=== PATIENT | male | born 1970 | race Hispanic/Latino ===

== ENCOUNTER 2018-03-31 07:05 | Day surgery (SDC) | payer BC ==
--- OUTSIDE RECORDS SUMMARY | 2018-03-31 07:18 | XMS REPORT ---
:1970 Author Organization eClinicalWorks Care Team Providers Name Role Phone Silvino Richardson Provider Role Unavailable Allergies No Known Allergies Problems Problem Type Condition Code Onset Dates Condition Status Assessment Right elbow tendonitis M77.8 Active Assessment Asthma without acute exacerbation J45.909 Active Assessment Malaise and fatigue R53.81 Active Problem Osteoarthritis of knee, unspecified M17.10 Active laterality, unspecified osteoarthritis type Problem Malaise and fatigue R53.81 Active Problem Right elbow tendonitis M77.8 Active Problem Asthma without acute exacerbation J45.909 Active Assessment Hyperlipidemia, mixed E78.2 Active Problem Hyperlipidemia, mixed E78.2 Active Problem Cardiac disease I51.9 Active Medications Medication Code Code Instructions Start End Date Status Dosage System Date Symbicort [facility] 87811736321 160-4.5 MCG/ACT Active 2 puffs Inhalation Twice a day Lipitor ND 68455799567 10 MG Orally Active 1 tablet Once a day Ventolin HFA [facility] 26695067567 108 (90 Base) Active 2 puffs as MCG/ACT needed Inhalation every 6 hrs PRN COuhg, Shortness of breath and Wheezing Fish Oil ND 04111116264 1000 MG Orally Active 1 capsule Once a day Duexis [facility] 79504126309 800-26.6 MG Active 1 tablet Orally Three times a day PRN Pain Results No Known Results Summary Purpose eClinicalWorks Submission
--- OUTSIDE RECORDS SUMMARY | 2018-03-31 07:18 | XMS REPORT ---
:1970 Author Organization eClinicalWorks Care Team Providers Name Role Phone Silvino Richardson Provider Role Unavailable Allergies No Known Allergies Problems Problem Type Condition Code Onset Dates Condition Status Assessment Asthma without acute exacerbation J45.909 Active Assessment Right elbow tendonitis M77.8 Active Assessment Hyperlipidemia, mixed E78.2 Active Assessment Malaise and fatigue R53.81 Active Problem Osteoarthritis of knee, unspecified M17.10 Active laterality, unspecified osteoarthritis type Problem Malaise and fatigue R53.81 Active Problem Right elbow tendonitis M77.8 Active Problem Asthma without acute exacerbation J45.909 Active Assessment Encounter for preventative adult Z00.01 Active health care exam with abnormal findings Problem Hyperlipidemia, mixed E78.2 Active Problem Cardiac disease I51.9 Active Medications Medication Code Code Instructions Start End Status Dosage System Date Date ProAir [facility] 34342802185 108 (90 Base) Inactive 2 puffs as RespiClick MCG/ACT needed Inhalation every 6 hrs Ventolin HFA ND 93169484558 108 (90 Base) November 10, Active 2 puffs as MCG/ACT 2017 needed Inhalation every 6 hrs PRN COuhg, Shortness of breath and Wheezing Symbicort ND 96552993985 160-4.5 MCG/ACT November 05 Active 2 puffs Inhalation 2018 Twice a day Proventil HFA ND 62277991953 108 (90 Base) Inactive 2 puffs as MCG/ACT needed Inhalation every 6 hrs Duexis [facility] 17213270148 800-26.6 MG November 10December Active 1 tablet Orally Three 2017 23, times a day PRN 2018 Pain Lipitor ND 49930490375 10 MG Orally Active 1 tablet Once a day Fish Oil ND 69100805919 1000 MG Orally Active 1 capsule Once a day Results No Known Results Summary Purpose eClinicalWorks Submission
[2018-03-31] MEDS ORDERED: Ringers Lactate 1,000 ML IV ONE (07:25)
[2018-03-31] MEDS ORDERED: LIDOCAINE 2% MPF 5 ML VIAL ONE (08:21)
[2018-03-31] MEDS ORDERED: MIDAZOLAM HCL 2 MG/2 ML INJ ONE (08:23)
[2018-03-31] MEDS ORDERED: PROPOFOL 200 MG/20 ML VIAL IV ONE (08:23)
[2018-03-31] MEDS ORDERED: ONDANSETRON 4 MG/2 ML VIAL ONE (08:49)
--- NOTE | 2018-03-31 08:49 | ENDO RPT ---
[address], [address] EGD PROCEDURE REPORT EXAM DATE: 03/31/2018 PATIENT NAME: Fito Christine MR#: [id number] BIRTHDATE: 1970 ATTENDING: Eddie Altamirano DR STATUS: outpatient ACID ETCH OPERATOR: Lotus Irnee RN and Robert Meredith INDICATIONS: The patient is a 48 yr old Male here for an EGD due to mid epigastric abdominal pain, GERD, dyspepsia, chronic unexplained diarrhea, bloating, and nausea and vomiting PROCEDURE PERFORMED: EGD with biopsy for H. pylori MEDICATIONS: Per Anesthesia. TOPICAL ANESTHETIC: none CONSENT: The patient understands the risks and benefits of the procedure and understands that these risks include, but are not limited to: sedation, allergic reaction, infection, perforation and/or bleeding. Alternative means of evaluation and treatment include, among others: physical exam, x-rays, and/or surgical intervention. The patient elects to proceed with this endoscopic procedure. DESCRIPTION OF PROCEDURE: During intra-op preparation period all mechanical medical equipment was checked for proper function. Hand hygiene and appropriate measures for infection prevention was taken. Procedure, possible complications, and alternatives including but not limited to the possibility of bleeding, perforation, tear, infection, sepsis, need for surgery, need for blood transfusion, and anesthesia related complications were explained to the patient. After the risks, benefits and alternatives of the procedure were thoroughly explained, Informed consent was verified, confirmed and timeout was successfully executed by the treatment team. The patient was placed in the left lateral position. The patient was anesthetized with topical anesthesia. Through the anesthetized oropharyngeal area, the scope was passed without any difficulty. The EG-[id number] ([id number]) endoscope was introduced through the mouth and advanced to the second portion of the duodenum. Retroflexed views revealed no abnormalities. The gastroscope was then slowly withdrawn and removed. Duodenitis was found in the bulb and descending duodenum. A biopsy for H. pylori was taken. Mild gastritis was found in the antrum. A biopsy for H. pylori was taken. Normal GE junction was noted. 40 cm from incisors, Z line sharp With standard forceps, a biopsy was obtained and sent to pathology. ADVERSE EVENTS: There were no complications. IMPRESSIONS: 1. Duodenitis was found in the bulb and descending duodenum 2. Mild gastritis was found in the antrum 3. Normal GE junction RECOMMENDATIONS: 1. acid suppression therapy 2. anti-reflux regimen 3. await biopsy results 4. follow-up: office 2 week(s) 5. avoid NSAIDS REPEAT EXAM: Return in 1 year(s) for Colonoscopy. Eddie Altamirano DR eSigned: Eddie Altamirano DR 03/31/2018 8:41 AM cc: CPT CODES: ICD9 CODES: PATIENT NAME: Fito Christine MR#: [id number]
== END 2018-03-31 09:29 | disposition home health service (06) ==
LOC: OR 07:05
PROVIDERS: ATTEND Surgery
PROC: 0DB68ZX Excision of Stomach, Via Natural or Artificial Opening Endoscopic, Diagnostic (ICD-10-PCS; 2018-03-31)
PROC: 0DB98ZX Excision of Duodenum, Via Natural or Artificial Opening Endoscopic, Diagnostic (ICD-10-PCS; principal; 2018-03-31 11:15)
DX: K29.50 Unspecified chronic gastritis without bleeding (principal); K29.80 Duodenitis without bleeding; K21.9 Gastro-esophageal reflux disease without esophagitis; E78.2 Mixed hyperlipidemia; J45.901 Unspecified asthma with (acute) exacerbation; Z88.0 Allergy status to penicillin; Z82.49 Family history of ischemic heart disease and other diseases of the circulatory system; Z80.1 Family history of malignant neoplasm of trachea, bronchus and lung
CPT/HCPCS: 88305; 88312; J2250; J2405

== ENCOUNTER 2018-07-31 13:05 | Emergency (ER) | payer BC ==
--- OUTSIDE RECORDS SUMMARY | 2018-07-31 13:08 | XMS REPORT ---
[...] Status Dosage System Date Date ProAir [facility] 85074264765 108 (90 Base) Inactive 2 puffs as RespiClick MCG/ACT needed Inhalation every 6 hrs Ventolin HFA ND 43168458950 108 (90 Base) November 10, Active 2 puffs as MCG/ACT 2017 needed Inhalation every 6 hrs PRN COuhg, Shortness of breath and Wheezing Symbicort ND 24260245317 160-4.5 MCG/ACT November 05 Active 2 puffs Inhalation 2018 Twice a day Proventil HFA ND 90338942463 108 (90 Base) Inactive 2 puffs as MCG/ACT needed Inhalation every 6 hrs Duexis [facility] 23140815361 800-26.6 MG November 10December Active 1 tablet Orally Three 2017 23, times a day PRN 2018 Pain Lipitor ND 09662693136 10 MG Orally Active 1 tablet Once a day Fish Oil ND 31316287551 1000 MG Orally Active 1 capsule Once a day Results No Known Results Summary Purpose eClinicalWorks Submission
--- OUTSIDE RECORDS SUMMARY | 2018-07-31 13:08 | XMS REPORT ---
:1970 [facility] Address [address] [place] [address] [address] [place] [address] Care Team Providers Name Role Phone Unavailable Unavailable Unavailable Problems This patient has no known problems. Allergies, Adverse Reactions, Alerts This patient has no known allergies or adverse reactions. Medications This patient has no known medications.
--- OUTSIDE RECORDS SUMMARY | 2018-07-31 13:08 | XMS REPORT ---
[...] End Date Status Dosage System Date Symbicort [facility] 06806802052 160-4.5 MCG/ACT Active 2 puffs Inhalation Twice a day Lipitor ND 29796958542 10 MG Orally Active 1 tablet Once a day Ventolin HFA [facility] 66950387998 108 (90 Base) Active 2 puffs as MCG/ACT needed Inhalation every 6 hrs PRN COuhg, Shortness of breath and Wheezing Fish Oil ND 30578935538 1000 MG Orally Active 1 capsule Once a day Duexis [facility] 51234134010 800-26.6 MG Active 1 tablet Orally Three times a day PRN Pain Results No Known Results Summary Purpose eClinicalWorks Submission
--- NOTE | 2018-07-31 14:21 | RAD REPORT ---
EXAM DESCRIPTION: US - Abdomen Exam Limited - 07/31/2018 2:00 pm CLINICAL HISTORY: Abdominal pain COMPARISON: None. FINDINGS: No gallstones, sludge or other abnormalities within the gallbladder lumen. There is no wal l thickening or pericholecystic fluid. No common duct stone or biliary tree dilatation identified. IMPRESSION: Normal gallbladder and biliary tree ultrasound.
--- NOTE | 2018-07-31 14:21 | RAD REPORT ---
EXAM DESCRIPTION: Shoulder Right 2 View - 07/31/2018 2:08 pm CLINICAL HISTORY: Right arm numbness and tingling COMPARISON: None. TECHNIQUE: Internal and external rotation views of the right shoulder were obtained. FINDINGS: There is no fracture or dislocation. Minimal AC joint degenerative changes are present. N o inferiorly directed spurring. Acromial humeral joint space is normal range. No abnormal soft tissue calcifications. There is minimal degenerative change along the undersurface of the acromion. IMPRESSION: Mild right shoulder degenerative change as detailed. No acute finding. Concerns for occult bone process or internal derangement can be addressed with MR imaging.
[2018-07-31 14:32] LABS: Absolute Lymphocytes (CBC) 1.8 K/uL (0.7-4.9); Absolute Monocytes 0.6 K/uL (0.1-1.3); Basophils % 0.7 % (0-1.3); Eosinophils % 1.2 % (0-4.4); Hematocrit 47.6 % (39.6-49.0); Lymphocytes % 16.7 % (15.3-44.8); Monocytes % 6.1 % (3.3-12.3)
[2018-07-31] MEDS ORDERED: MORPHINE 4 MG/ML SYR ONE (14:43)
[2018-07-31] MEDS ORDERED: ONDANSETRON 4 MG/2 ML VIAL ONE (14:43)
[2018-07-31 14:45] LABS: Albumin 4.4 g/dL (3.4-5.0); Bilirubin Direct 0.1 mg/dL (0-0.2); Bilirubin Total 0.4 mg/dL (0.2-1.0); Protein, Total 8.2 g/dL (6.4-8.2)
[2018-07-31 14:51] LABS: Urine Blood NEGATIVE (NEG); Urine Glucose NEGATIVE (NEG); Urine Protein NEGATIVE (NEG); Urine Specific Gravity 1.015 (1.005-1.030)
--- NOTE | 2018-07-31 15:49 | ER ---
Nurse's Notes [facility] Name: Fito Christine Age: 48 yrs Sex: Male : 1970 Arrival Date: 07/31/2018 Time: 13:09 Bed 30 Private MD: Silvino Richardson Diagnosis: Epigastric pain Presentation: 07/31 13:21 Presenting complaint: Patient states: right shoulder pain x 1 month ago. Pt also aa5 reports RUQ pain that began 3 days ago with nausea and diarrhea, denies vomiting. Transition of care: patient was not received from another setting of care. Onset of symptoms was July 2018. Risk Assessment: Do you want to hurt yourself or someone else? Patient reports no desire to harm self or others. Initial Sepsis Screen: Does the patient meet any 2 criteria? No. Patient's initial sepsis screen is negative. Does the patient have a suspected source of infection? No. Patient's initial sepsis screen is negative. Care prior to arrival: None. 13:21 Method Of Arrival: Ambulatory aa5 13:21 Acuity: DIANE 3 aa5 Historical: - Allergies: 13:22 PENICILLINS; aa5 - PMHx: 13:22 Asthma; High Cholesterol; aa5 - PSHx: 13:22 Appendectomy; aa5 - Immunization history:: Flu vaccine is up to date. - Social history:: Smoking status: Patient/guardian denies using tobacco, Patient/guardian denies using alcohol, street drugs, The patient lives with family. - Ebola Screening: : No symptoms or risks identified at this time. - Family history:: not pertinent. Screenin:36 Abuse screen: Denies threats or abuse. Nutritional screening: No deficits noted. tl3 Tuberculosis screening: No symptoms or risk factors identified. Fall Risk None identified. Assessment: 13:36 General: Appears uncomfortable, well groomed, well developed, well nourished, Behavior tl3 is calm, cooperative, appropriate for age. Pain: Complains of pain in right upper abdomen that goes around to his back. Neuro: Level of Consciousness is awake, alert, obeys commands, Oriented to person, place, time, situation, Appropriate for age. Cardiovascular: Heart tones S1 S2 present Patient's skin is warm and dry. Respiratory: Airway is patent Respiratory effort is even, unlabored, Respiratory pattern is regular, symmetrical, Breath sounds are clear bilaterally. GI: Bowel sounds present X 4 quads. Abd is soft and non tender X 4 quads. 15:21 Reassessment: Patient and/or family updated on plan of care and expected duration. Pain tl3 level reassessed. Patient is alert, oriented x 3, equal unlabored respirations, skin warm/dry/pink. no needs at this timr Patient states feeling better. Patient states symptoms have improved. 16:00 Reassessment: No changes from previously documented assessment. Patient and/or family tl3 updated on plan of care and expected duration. Pain level reassessed. Patient is alert, oriented x 3, equal unlabored respirations, skin warm/dry/pink. pt being discharged. Vital Signs: 13:22 BP 125 / 88; Pulse 100; Resp 18 S; Temp 99.3(TE); Pulse Ox 98% on R/A; Weight 96.16 kg aa5 (R); Height 5 ft. 9 in. (175.26 cm) (R); Pain 10/10; 15:21 BP 114 / 78; Pulse 87; Resp 18; Pulse Ox 94% on R/A; tl3 16:00 BP 116 / 84; Pulse 84; Resp 18; Pulse Ox 97% ; tl3 13:22 Body Mass Index 31.31 (96.16 kg, 175.26 cm) aa5 ED Course: 13:09 Patient arrived in ED. mr 13:09 Silvino Richardson DO is Private Physician. mr 13:21 Triage completed. aa5 13:21 Arm band placed on. aa5 13:28 Kwadwo Moffett MD is Attending Physician. ma2 13:36 Thelma Roche, LAURA is Primary Nurse. tl3 13:36 Patient has correct armband on for positive identification. Bed in low position. Call tl3 light in reach. 13:36 No provider procedures requiring assistance completed. tl3 13:59 US Abdomen Limited In Process Unspecified. EDMS 14:00 X-ray completed. Portable x-ray completed in exam room. Patient tolerated procedure sw well. 14:05 Shoulder Right (2 View) XRAY In Process Unspecified. EDMS 14:15 Initial lab(s) drawn, by me, sent to lab. Inserted saline lock: 20 gauge in right jp3 antecubital area, using aseptic technique. Blood collected. 14:23 Urine collected: clean catch specimen, clear, mary beth colored, Amount Voided: 80mL. jp3 14:23 Basic Metabolic Panel Sent. jp3 14:24 CBC with Diff Sent. jp3 14:24 Creatinine for Radiology Sent. jp3 14:24 Hepatic Function Sent. jp3 14:24 Lipase Sent. jp3 16:00 IV discontinued, intact, bleeding controlled, No redness/swelling at site. Pressure tl3 dressing applied. Administered Medications: 14:40 Drug: Zofran 4 mg Route: IVP; Infused Over: 2 mins; Site: right antecubital; tl3 15:21 Follow up: Response: No adverse reaction tl3 14:43 Drug: morphine 4 mg Route: IVP; Infused Over: 1 mins; Site: right antecubital; tl3 15:21 Follow up: Response: Marked relief of symptoms tl3 Outcome: 15:47 Discharge ordered by . [email or web address] 16:00 Discharged to home ambulatory. tl3 16:00 Condition: stable 16:00 Discharge instructions given to patient, Instructed on discharge instructions, follow up and referral plans. Demonstrated understanding of instructions, follow-up care, medications, Prescriptions given X 1. 16:29 Patient left the ED. tl3 Signatures: Dispatcher [employer] Heydi Hawkins KristopherConstanza RN RN aa5 Delores Ventura Mohammad, MD MD ma2 Thelma Roche RN RN tl3 Danish Geiger jp3
--- NOTE | 2018-07-31 15:50 | EDPHYS ---
Physician Documentation [facility] Name: Fito Christine Age: 48 yrs Sex: Male : 1970 Arrival Date: 07/31/2018 Time: 13:09 Bed 30 Private MD: [facility] ED Physician Kwadwo Moffett HPI: 07/31 15:45 This 48 yrs old Male presents to ER via Ambulatory with complaints of ma2 Abdominal Pain, Nausea, Shoulder Pain. 15:45 The patient presents to the emergency department with nausea, vomiting, abdominal pain, ma2 of the epigastric area and right upper quadrant. Onset: The symptoms/episode began/occurred gradually, 2 day(s) ago. The symptoms are aggravated by pressure. Associated signs and symptoms: Pertinent positives: abdominal pain, Pertinent negatives: diarrhea, flatulence, hematuria. Severity of symptoms: At their worst the symptoms were moderate in the emergency department the symptoms are unchanged. The patient has experienced similar episodes in the past. Historical: - Allergies: 13:22 PENICILLINS; aa5 - PMHx: 13:22 Asthma; High Cholesterol; aa5 - PSHx: 13:22 Appendectomy; aa5 - Immunization history:: Flu vaccine is up to date. - Social history:: Smoking status: Patient/guardian denies using tobacco, Patient/guardian denies using alcohol, street drugs, The patient lives with family. - Ebola Screening: : No symptoms or risks identified at this time. - Family history:: not pertinent. ROS: 15:45 Constitutional: Negative for fever, chills, and weight loss, Cardiovascular: Negative ma2 for chest pain, palpitations, and edema, Respiratory: Negative for shortness of breath, cough, wheezing, and pleuritic chest pain, Abdomen/GI: Negative for abdominal pain, nausea, diarrhea, and constipation, MS/Extremity: Negative for injury and deformity, Neuro: Negative for headache, weakness, numbness, tingling, and seizure, Psych: Negative for depression, anxiety, suicide ideation, homicidal ideation, and hallucinations, Allergy/Immunology: Negative for hives, rash, and allergies. Exam: 15:45 Constitutional: This is a well developed, well nourished patient who is awake, alert, ma2 and in no acute distress. Chest/axilla: Normal chest wall appearance and motion. Nontender with no deformity. No lesions are appreciated. Cardiovascular: Regular rate and rhythm with a normal S1 and S2. No gallops, murmurs, or rubs. Normal PMI, no JVD. No pulse deficits. Respiratory: Lungs have equal breath sounds bilaterally, clear to auscultation and percussion. No rales, rhonchi or wheezes noted. No increased work of breathing, no retractions or nasal flaring. Abdomen/GI: Soft, non-tender, with normal bowel sounds. No distension or tympany. No guarding or rebound. No evidence of tenderness throughout. Skin: Warm, dry with normal turgor. Normal color with no rashes, no lesions, and no evidence of cellulitis. MS/ Extremity: Pulses equal, no cyanosis. Neurovascular intact. Full, normal range of motion. Neuro: Awake and alert, GCS 15, oriented to person, place, time, and situation. Cranial nerves II-XII grossly intact. Motor strength 5/5 in all extremities. Sensory grossly intact. Cerebellar exam normal. Normal gait. Vital Signs: 13:22 BP 125 / 88; Pulse 100; Resp 18 S; Temp 99.3(TE); Pulse Ox 98% on R/A; Weight 96.16 kg aa5 (R); Height 5 ft. 9 in. (175.26 cm) (R); Pain 10/10; 15:21 BP 114 / 78; Pulse 87; Resp 18; Pulse Ox 94% on R/A; tl3 16:00 BP 116 / 84; Pulse 84; Resp 18; Pulse Ox 97% ; tl3 13:22 Body Mass Index 31.31 (96.16 kg, 175.26 cm) aa5 MDM: 13:28 Patient medically screened. ma2 15:45 Differential diagnosis: gastritis, pancreatitis, viral gastroenteritis, ma2 gastroenteritis. Data reviewed: vital signs, nurses notes, EMS record. Counseling: I had a detailed discussion with the patient and/or guardian regarding: the historical points, exam findings, and any diagnostic results supporting the discharge/admit diagnosis, the presence of at least one elevated blood pressure reading (>120/80) during this emergency department visit, the need for outpatient follow up. Response to treatment: the patient's symptoms have resolved after treatment. 07/31 13:39 Order name: Basic Metabolic Panel; Complete Time: 15:24 ma2 07/31 13:39 Order name: CBC with Diff; Complete Time: 15:24 [facility] 07/31 13:39 Order name: Creatinine for Radiology; Complete Time: 15:24 [facility] 07/31 13:39 Order name: Hepatic Function; Complete Time: 15:24 [facility] 07/31 13:39 Order name: Lipase; Complete Time: 15:24 [facility] 07/31 14:43 Order name: Urine Dipstick--Ancillary (enter results); Complete Time: 15:24 07/31 13:39 Order name: IV Saline Lock; Complete Time: 14:24 [facility] 07/31 13:39 Order name: Labs collected and sent; Complete Time: 14:24 [facility] 07/31 13:39 Order name: US Abdomen Limited; Complete Time: 15:24 [facility] 07/31 13:39 Order name: Shoulder Right (2 View) XRAY; Complete Time: 15:24 ma Administered Medications: 14:40 Drug: Zofran 4 mg Route: IVP; Infused Over: 2 mins; Site: right antecubital; tl3 15:21 Follow up: Response: No adverse reaction tl3 14:43 Drug: morphine 4 mg Route: IVP; Infused Over: 1 mins; Site: right antecubital; tl3 15:21 Follow up: Response: Marked relief of symptoms tl3 Disposition: 07/31/18 15:47 Discharged to Home. Impression: Epigastric pain. - Condition is Stable. - Discharge Instructions: Abdominal Pain, Adult, Coqf-bn-Vpsy, How to Use a Sling. - Prescriptions for Pepcid 20 mg Oral Tablet - take 1 tablet by ORAL route once daily for 10 days; 10 tablet. - Medication Reconciliation Form, Thank You Letter, Antibiotic Education, Prescription Opioid Use, Work release form, Family Work Release form. - Follow up: Private Physician; When: Today; Reason: Continuance of care. Signatures: Dispatcher [employer] Constanza Parisi, RN RN aa5 Kwadwo Moffett MD MD ma2 Thelma Roche RN RN tl3 Corrections: (The following items were deleted from the chart) 16:29 15:47 07/31/2018 15:47 Discharged to Home. Impression: Epigastric pain. Condition is tl3 Stable. Forms are Medication Reconciliation Form, Thank You Letter, Antibiotic Education, Prescription Opioid Use. Follow up: Private Physician; When: Today; Reason: Continuance of care. ma2
== END 2018-07-31 16:29 | disposition home or self-care (01) ==
LOC: ER 13:05
DX: R10.13 Epigastric pain (principal); Z88.0 Allergy status to penicillin
CPT/HCPCS: 36415; 76705; 80048; 80076; 81003; 83690; 85025; 96374; 96375; 99284; J2405

== ENCOUNTER 2019-06-11 11:30 | Observation (INO) | payer BC ==
--- OUTSIDE RECORDS SUMMARY | 2019-06-11 11:32 | XMS REPORT ---
[...] Date Status Dosage System Date Symbicort [facility] 42462016624 160-4.5 MCG/ACT Active 2 puffs Inhalation Twice a day Lipitor ND 96919931555 10 MG Orally Active 1 tablet Once a day Ventolin HFA [facility] 44512794912 108 (90 Base) Active 2 puffs as MCG/ACT needed Inhalation every 6 hrs PRN COuhg, Shortness of breath and Wheezing Fish Oil ND 52903096205 1000 MG Orally Active 1 capsule Once a day Duexis [facility] 43883893140 800-26.6 MG Active 1 tablet Orally Three times a day PRN Pain Results No Known Results Summary Purpose eClinicalWorks Submission
--- OUTSIDE RECORDS SUMMARY | 2019-06-11 11:32 | XMS REPORT ---
[...] End Status Dosage System Date Date ProAir [facility] 88928784369 108 (90 Base) Inactive 2 puffs as RespiClick MCG/ACT needed Inhalation every 6 hrs Ventolin HFA ND 96951847396 108 (90 Base) November 10, Active 2 puffs as MCG/ACT 2017 needed Inhalation every 6 hrs PRN COuhg, Shortness of breath and Wheezing Symbicort ND 61484354914 160-4.5 MCG/ACT November 05 Active 2 puffs Inhalation 2018 Twice a day Proventil HFA ND 17985443755 108 (90 Base) Inactive 2 puffs as MCG/ACT needed Inhalation every [address] [facility] 52737645874 800-26.6 MG November 10December Active 1 tablet Orally Three 2017 23, times a day PRN 2018 Pain Lipitor ND 94641787660 10 MG Orally Active 1 tablet Once a day Fish Oil ND 27994683754 1000 MG Orally Active 1 capsule Once a day Results No Known Results Summary Purpose eClinicalWorks Submission
--- OUTSIDE RECORDS SUMMARY | 2019-06-11 11:32 | XMS REPORT ---
:1970 [facility] Address [address] [place] [address] Care Team Providers Name Role Phone Unavailable Unavailable Unavailable Problems This patient has no known problems. Allergies, Adverse Reactions, Alerts This patient has no known allergies or adverse reactions. Medications This patient has no known medications.
[2019-06-11] MEDS ORDERED: CLINDAMYCIN 900MG/D5W 900 MG/50 ML IVPB IV ONE (12:16)
[2019-06-11] MEDS ORDERED: ONDANSETRON 4 MG/2 ML VIAL ONE (12:16)
[2019-06-11] MEDS ORDERED: MORPHINE 4 MG/ML SYR ONE ×2 (12:16→14:47)
[2019-06-11 12:51] LABS: Absolute Lymphocytes (CBC) 1.4 K/uL (0.7-4.9); Basophils % 0.5 % (0-1.3); Hematocrit 45.4 % (39.6-49.0); MPV 9.1 fL (7.6-11.3); RBC Red Blood Cell Count 5.35 M/uL (4.33-5.43)
[2019-06-11 12:57] LABS: Potassium 4.1 mmol/L (3.5-5.1)
--- NOTE | 2019-06-11 13:25 | RAD REPORT ---
EXAM DESCRIPTION: CT - [facility]ID [facility] CLINICAL HISTORY: Right nasal abscess Facial pain and swelling COMPARISON: No comparisons TECHNIQUE: Axial 2 mm thick images of the face were obtained with contrast and with sagittal and cor onal reconstruction images. All CT scans are performed using dose optimization technique as appropriate and may include automated exposure control or mA/KV adjustment according to patient size. FINDINGS: Soft tissue thickening and edema is seen in the in perinasal tissues. A small rim enhancin g abscess is suspected along the right nasal soft tissues measuring 5 mm. This located just inferior to the right nasal bone. No acute facial bone fracture is seen.The mandible is intact. The globes and orbital contents are grossly unremarkable.Small mucous retention cyst or polyp is pres ent in the left maxillary antrum. The paranasal sinuses and mastoids are otherwise clear. A few mildly prominent lymph nodes are seen in the neck bilaterally. IMPRESSION: Perinasal soft tissue swelling is evident with a small 5 mm abscess possibly present sebastian ng the right sided soft tissues of the nose.
--- NOTE | 2019-06-11 13:47 | ER ---
Nurse's Notes [facility] Name: Fito Christine Age: 49 yrs Sex: Male : 1970 Arrival Date: 06/11/2019 Time: 11:32 Bed 17 Private MD: Diagnosis: Facial Abscess: Right nostril Presentation: 06/11 11:32 Presenting complaint: Patient states: right side facial swelling x 1 day, c/o headache sv to the right side. Transition of care: patient was not received from another setting of care. Onset of symptoms was June 10, 2019. Risk Assessment: Do you want to hurt yourself or someone else? Patient reports no desire to harm self or others. Care prior to arrival: Medication(s) given: Motrin, taken at 0800. 11:32 Method Of Arrival: Ambulatory sv 11:32 Acuity: DIANE 3 sv 12:05 Initial Sepsis Screen: Does the patient meet any 2 criteria? No. Patient's initial em sepsis screen is negative. Does the patient have a suspected source of infection? Yes: Skin breakdown/wound. Historical: - Allergies: 11:33 PENICILLINS; sv - PMHx: 11:33 Asthma; High Cholesterol; sv - PSHx: 11:33 Appendectomy; sv - Immunization history:: Flu vaccine is up to date. - Social history:: Smoking status: Patient/guardian denies using tobacco. - Ebola Screening: : No symptoms or risks identified at this time. Screenin:08 Abuse screen: Denies threats or abuse. Nutritional screening: No deficits noted. em Tuberculosis screening: No symptoms or risk factors identified. Fall Risk None identified. Assessment: 12:05 General: Appears in no apparent distress. uncomfortable, Behavior is calm, cooperative, em Denies fever. Pain: Complains of pain in right cheek and nose Pain currently is 9 out of 10 on a pain scale. Neuro: Level of Consciousness is awake, alert, obeys commands, Oriented to person, place, time, situation, Appropriate for age Reports headache in right. Cardiovascular: Capillary refill < 3 seconds Patient's skin is warm and dry. Respiratory: Airway is patent Respiratory effort is even, unlabored, Respiratory pattern is regular, symmetrical. GI: Patient currently denies nausea, vomiting. EENT: swelling noted to right side of face. Derm: Skin is intact, is healthy with good turgor, Skin is pink, warm \T\ dry. Musculoskeletal: Capillary refill < 3 seconds, Range of motion: intact in all extremities. 12:15 General: The previous assessment is accurate, call light remains within reach. . ss 13:30 Reassessment: Patient appears in no apparent distress at this time. Patient and/or em family updated on plan of care and expected duration. Pain level reassessed. Patient is alert, oriented x 3, equal unlabored respirations, skin warm/dry/pink. 14:33 Reassessment: Patient appears in no apparent distress at this time. Patient and/or em family updated on plan of care and expected duration. Pain level reassessed. Patient is alert, oriented x 3, equal unlabored respirations, skin warm/dry/pink. pending room assignment. 14:45 Reassessment: reports pain is 8/10, restless and uncomfortable, provider notified, new em medication orders received. 15:04 Reassessment: hospitalist at bedside discussing POC. em 16:40 Reassessment: Patient appears in no apparent distress at this time. Patient and/or em family updated on plan of care and expected duration. Pain level reassessed. Patient is alert, oriented x 3, equal unlabored respirations, skin warm/dry/pink. reports pain is coming back, rates pain 8/10. Vital Signs: 11:33 BP 135 / 81; Pulse 88; Resp 18; Temp 97.8(O); Pulse Ox 100% ; Weight 99.79 kg; Height 5 sv ft. 9 in. (175.26 cm); Pain 7/10; 14:38 BP 135 / 89; Pulse 94; Resp 18; Pulse Ox 99% on R/A; Pain 8/10; em 15:49 BP 124 / 86; Pulse 81; Resp 18; Pulse Ox 99% on R/A; mh5 16:04 BP 135 / 93; Pulse 87; Resp 16; Pulse Ox 99% on R/A; Pain 6/10; em 16:40 BP 127 / 91; Pulse 79; Resp 18; Pulse Ox 98% on R/A; Pain 7/10; em 11:33 Body Mass Index 32.49 (99.79 kg, 175.26 cm) sv ED Course: 11:32 Patient arrived in ED. as 11:32 Elbert Bhakta MD is Attending Physician. kdr 11:33 Triage completed. sv 11:34 Arm band placed on Patient placed in an exam room, on a stretcher. sv 12:05 Initial lab(s) drawn, by me, sent to lab. Inserted saline lock: 22 gauge in right em forearm, using aseptic technique. Blood collected. 12:08 Patient has correct armband on for positive identification. Bed in low position. Call em light in reach. Adult w/ patient. 12:09 Manny Umana LVN is Primary Nurse. em 12:10 Radiology exam delayed due to lab results not completed at this time. (BUN/Creatinine). sw 13:08 CT Facial Bones W/ Con \T\ Mpr In Process Unspecified. EDMS 13:45 Brendan Carter is Hospitalizing Provider. kdr 16:40 No provider procedures requiring assistance completed. Patient admitted, IV remains in em place. Administered Medications: 12:08 Drug: Zofran 4 mg Route: IVP; Site: right forearm; ss 13:15 Follow up: Response: No adverse reaction em 12:10 Drug: morphine 4 mg Route: IVP; Site: right forearm; ss 13:15 Follow up: Response: No adverse reaction; Pain is decreased em 12:28 Drug: Clindamycin 900 mg Route: IVPB; Infused Over: 30 mins; Site: right forearm; ss 13:14 Follow up: Response: No adverse reaction; IV Status: Completed infusion; IV Intake: 50mlem 14:45 Drug: morphine 4 mg Route: IVP; Site: right forearm; em 15:30 Follow up: Response: No adverse reaction; Pain is decreased; RASS: Alert and Calm (0) em 16:48 Drug: fentaNYL (PF) 50 mcg Route: IVP; Site: right forearm; ss 16:56 Follow up: Response: No adverse reaction; Medication administered at discharge. em Intake: 13:14 IV: 50ml; Total: 50ml. em Outcome: 13:46 Decision to Hospitalize by Provider. kdr 16:53 Admitted to Med/surg accompanied by tech, family with patient, via wheelchair, room em 228, with chart, Report called to LAURA OBRIEN 16:53 Condition: good 16:53 Instructed on the need for admit, Demonstrated understanding of instructions. 16:58 Patient left the ED. em Signatures: Dis[facility] Joan Alexander RN RN sv Elbert Bhakta MD MD kdr Munoz, Edgar, EEG TECHNICIAN EEG TECHNICIAN Josette Sanchez Shelby, RN RN ss Warren, Shannon sw Martinez, Maria [facility] Corrections: (The following items were deleted from the chart) 11:35 11:33 Pulse 88bpm; Resp 18bpm; Pulse Ox 100%; Temp 97.8F Oral; 99.79 kg; Height 5 ft. 9 sv in.; BMI: 32.4; Pain 7/10; sv
--- NOTE | 2019-06-11 13:48 | EDPHYS ---
Physician Documentation [facility] Name: Fito Christine Age: 49 yrs Sex: Male : 1970 Arrival Date: 06/11/2019 Time: 11:32 Bed 17 Private MD: ED Physician Elbert Bhakta HPI: 06/11 12:26 This 49 yrs old Male presents to ER via Ambulatory with complaints of Facial kdr Swelling, Headache. 12:27 The patient presents with pain and swelling to right nares near septum. Onset: The kdr symptoms/episode began/occurred gradually, 3 day(s) ago, Slice Satruday. Modifying factors: The symptoms are alleviated by nothing. the symptoms are aggravated by Touching the area and moving his face. Associated signs and symptoms: The patient has no apparent associated signs or symptoms. Severity of symptoms: At their worst the symptoms were mild moderate just prior to arrival, in the emergency department the symptoms are unchanged. The patient has not experienced similar symptoms in the past. The patient has not recently seen a physician. Historical: - Allergies: 11:33 PENICILLINS; sv - PMHx: 11:33 Asthma; High Cholesterol; sv - PSHx: 11:33 Appendectomy; sv - Immunization history:: Flu vaccine is up to date. - Social history:: Smoking status: Patient/guardian denies using tobacco. - Ebola Screening: : No symptoms or risks identified at this time. ROS: 12:27 Constitutional: Negative for fever, chills, and weight loss, Eyes: Negative for injury, kdr pain, redness, and discharge, Neck: Negative for injury, pain, and swelling, Cardiovascular: Negative for chest pain, palpitations, and edema, Respiratory: Negative for shortness of breath, cough, wheezing, and pleuritic chest pain, Abdomen/GI: Negative for abdominal pain, nausea, vomiting, diarrhea, and constipation, Back: Negative for injury and pain, : Negative for injury, bleeding, discharge, and swelling, MS/Extremity: Negative for injury and deformity, Skin: Negative for injury, rash, and discoloration, Neuro: Negative for headache, weakness, numbness, tingling, and seizure activity. Psych: Negative for depression, anxiety, suicide ideation, homicidal ideation, and hallucinations, Allergy/Immunology: Negative for hives, rash, and allergies, Endocrine: Negative for neck swelling, polydipsia, polyuria, polyphagia, and marked weight changes, Hematologic/Lymphatic: Negative for swollen nodes, abnormal bleeding, and unusual bruising. 12:27 ENT: Positive for pain and swelling to base of left nostril elevating the floor the nostril. Exam: 12:27 Constitutional: This is a well developed, well nourished patient who is awake, alert, kdr and in no acute distress. Head/Face: Normocephalic, atraumatic. Eyes: Pupils equal round and reactive to light, extra-ocular motions intact. Lids and lashes normal. Conjunctiva and sclera are non-icteric and not injected. Cornea within normal limits. Periorbital areas with no swelling, redness, or edema. Neck: Trachea midline, no thyromegaly or masses palpated, and no cervical lymphadenopathy. Supple, full range of motion without nuchal rigidity, or vertebral point tenderness. No Meningismus. Chest/axilla: Normal chest wall appearance and motion. Nontender with no deformity. No lesions are appreciated. Cardiovascular: Regular rate and rhythm with a normal S1 and S2. No gallops, murmurs, or rubs. Normal PMI, no JVD. No pulse deficits. Respiratory: Lungs have equal breath sounds bilaterally, clear to auscultation and percussion. No rales, rhonchi or wheezes noted. No increased work of breathing, no retractions or nasal flaring. Abdomen/GI: Soft, non-tender, with normal bowel sounds. No distension or tympany. No guarding or rebound. No evidence of tenderness throughout. Back: No spinal tenderness. No costovertebral tenderness. Full range of motion. Skin: Warm, dry with normal turgor. Normal color with no rashes, no lesions, and no evidence of cellulitis. MS/ Extremity: Pulses equal, no cyanosis. Neurovascular intact. Full, normal range of motion. Neuro: Awake and alert, GCS 15, oriented to person, place, time, and situation. Cranial nerves II-XII grossly intact. Motor strength 5/5 in all extremities. Sensory grossly intact. Cerebellar exam normal. Normal gait. Psych: Awake, alert, with orientation to person, place and time. Behavior, mood, and affect are within normal limits. 12:27 ENT: Nose: Nasal mucosa: edematous, erythematous, moist, swelling and redness to the medial aspect of the floor of the nostril, Examination of the other nostril shows no obvious abnormality. Vital Signs: 11:33 BP 135 / 81; Pulse 88; Resp 18; Temp 97.8(O); Pulse Ox 100% ; Weight 99.79 kg; Height 5 sv ft. 9 in. (175.26 cm); Pain 7/10; 14:38 BP 135 / 89; Pulse 94; Resp 18; Pulse Ox 99% on R/A; Pain 8/10; em 15:49 BP 124 / 86; Pulse 81; Resp 18; Pulse Ox 99% on R/A; mh5 16:04 BP 135 / 93; Pulse 87; Resp 16; Pulse Ox 99% on R/A; Pain 6/10; em 16:40 BP 127 / 91; Pulse 79; Resp 18; Pulse Ox 98% on R/A; Pain 7/10; em 11:33 Body Mass Index 32.49 (99.79 kg, 175.26 cm) sv MDM: 12:27 Data reviewed: vital signs, nurses notes, lab test result(s), radiologic studies. kdr Counseling: I had a detailed discussion with the patient and/or guardian regarding: the historical points, exam findings, and any diagnostic results supporting the discharge/admit diagnosis, lab results, radiology results. 13:46 Patient medically screened. kdr 06/11 12:04 Order name: CBC with Diff; Complete Time: 13:10 kdr 06/11 12:04 Order name: Chem 7; Complete Time: 13:10 kdr 06/11 12:04 Order name: CT Facial Bones W/ Con \T\ Mpr; Complete Time: 13:32 kdr Administered Medications: 12:08 Drug: Zofran 4 mg Route: IVP; Site: right forearm; ss 13:15 Follow up: Response: No adverse reaction em 12:10 Drug: morphine 4 mg Route: IVP; Site: right forearm; ss 13:15 Follow up: Response: No adverse reaction; Pain is decreased em 12:28 Drug: Clindamycin 900 mg Route: IVPB; Infused Over: 30 mins; Site: right forearm; ss 13:14 Follow up: Response: No adverse reaction; IV Status: Completed infusion; IV Intake: 50mlem 14:45 Drug: morphine 4 mg Route: IVP; Site: right forearm; em 15:30 Follow up: Response: No adverse reaction; Pain is decreased; RASS: Alert and Calm (0) em 16:48 Drug: fentaNYL (PF) 50 mcg Route: IVP; Site: right forearm; ss 16:56 Follow up: Response: No adverse reaction; Medication administered at discharge. em Disposition: 06/11/19 13:46 Hospitalization ordered by Brendan Carter for Observation. Preliminary diagnosis is Facial Abscess: Right nostril. - Bed requested for Telemetry/MedSurg (observation). - Status is Observation. em - Condition is Fair. - Problem is new. - Symptoms have improved. UTI on Admission? No Signatures: Dispatcher [employer] EDMS Jaky Lovett Stephanie, RN RN sv Elbert Bhakta MD MD kdr Munoz, Edgar, MACHINE RUG CLEANER MACHINE RUG CLEANER em Kristin Campa RN RN ss Corrections: (The following items were deleted from the chart) 16:28 13:46 Hospitalization Ordered by Brendan Carter for Observation. Preliminary diagnosis bd is Facial Abscess: Right nostril. Bed requested for Telemetry/MedSurg (observation). Status is Observation. Condition is Fair. Problem is new. Symptoms have improved. UTI on Admission? No. kdr 16:58 16:28 06/11/2019 13:46 Hospitalization Ordered by Brendan Carter for Observation. em Preliminary diagnosis is Facial Abscess: Right nostril. Bed requested for Telemetry/MedSurg (observation). Status is Observation. Condition is Fair. Problem is new. Symptoms have improved. UTI on Admission? No. bd
--- NOTE | 2019-06-11 15:49 | P.HP ---
Certification for Inpatient Patient admitted to: Observation With expected LOS: <2 Midnights Practitioner: I am a practitioner with admitting privileges, knowledge of patient current condition, hospital course, and medical plan of care. Services: Services provided to patient in accordance with Admission requirements found in Title 42 Section 412.3 of the Code of Federal Regulations Patient History Date of Service: 06/11/19 Reason for admission: Facial pain and abscess History of Present Illness: 49-year-old changed presented to the emergency department with a complaint pain and swelling in the right nostril and has been present over the past 3 days, the pain has gotten progressively worse and swelling got bigger. He denied any fever. He denies any nasal discharge. CT facial bones in the ED the reports an abscess in the right nostril along with the perinasal soft tissue swelling indicating cellulitis. Patient was given a dose of clindamycin given that he has penicillin allergy, Dr. Galan was informed by the ED physician who is planning to perform I and D of the abscess tomorrow morning and recommended admission to the hospitalist service. Allergies Penicillins Allergy (Unverified 06/30/17 19:57) Unknown - Past Medical/Surgical History -: Hyperlipidemia -: Asthma -: Appendectomy - Family History Family History: Reviewed- Non-Contributory - Social History Alcohol use: No CD- Drugs: No Review of Systems Other: General: No fever, no malaise, no unintentional weight loss. Eyes: No eye discharge, Respiratory: No cough, no shortness of breath. CVS: No chest pain, no palpitation, no lightheadedness. GI: No abdominal pain, no nausea no vomit, no constipation, no diarrhea. Genitourinary: No dysuria, no urinary frequency, no incontinence, no hematuria. Musculoskeletal: No joint pains, or joint swelling, no gait instability. Neurology: No headache, no asymmetric weakness, no problem with swallowing. Except as documented, all other systems reviewed and negative. Physical Examination - Physical Exam General: Alert, In no apparent distress, Oriented x3 HEENT: Atraumatic, Mucous membr. moist/pink, Other (Swelling noted at the edge of the right nostril, very tender to palpation,) Neck: Supple, JVD not distended Respiratory: Clear to auscultation bilaterally, Normal air movement Cardiovascular: No edema, Regular rate/rhythm, Normal S1 S2 Gastrointestinal: Normal bowel sounds, Soft and benign, No tenderness Musculoskeletal: No swelling Integumentary: No rashes Neurological: Normal speech, Normal strength at 5/5 x4 extr - Studies Laboratory Data (last 24 hrs) 06/11/19 12:25: Sodium 142, Potassium 4.1, BUN 19 H, Creatinine 1.15, Glucose 123 H 06/11/19 12:25: WBC 12.4 H, Hgb 15.2, Hct 45.4, Plt Count 245 Assessment and Plan - Problems (Diagnosis) (1) Facial abscess Current Visit: Yes Status: Acute (2) Asthma Current Visit: Yes Status: Chronic (3) Hyperlipidemia Current Visit: Yes Status: Chronic - Plan Placed under observation Clindamycin IV Pain management with IV morphine and [place] Consult to Dr. Galan requested. I discussed case with Dr. Galan and he plans to take him to the OR tomorrow morning. NPO at midnight. Continue home medications. - Advance Directives Does patient have a Living Will: No Does patient have a Durable POA for Healthcare: No
[2019-06-11] MEDS ORDERED: FENTANYL CITR 100 MCG/2 ML ONE (16:51)
[2019-06-11] MEDS ORDERED: ONDANSETRON 4 MG/2 ML VIAL IV PRN (17:18)
[2019-06-11] MEDS ORDERED: ACETAMINOPHEN 500 MG TAB PO PRN (17:18)
[2019-06-11] MEDS ORDERED: HYDROCODONE/APAP 5/325 MG TAB PO PRN (17:18)
[2019-06-11 18:01] VITALS: BMI 32.5
[2019-06-11] MEDS: NA CHLORIDE 0.9% 1,000 ML IV SCH (18:24)
[2019-06-11] MEDS: CLINDAMYCIN INJ 600 MG in NA CHLORIDE 0.9% 50 ML IV SCH (18:24)
[2019-06-11 21:17] LABS: Urine Appearance CLEAR; Urine Bilirubin NEGATIVE (NEG); Urine Blood NEGATIVE (NEG); Urine Color YELLOW; Urine Glucose 1+ (NEG); Urine Protein NEGATIVE (NEG); Urine Specific Gravity >=1.030 (1.005-1.030); Urine pH 5.5 (5.0-7.0)
[2019-06-11 21:19] LABS: Urine Microscopic Reflex NO UMIC
[2019-06-11] MEDS: MORPHINE 4 MG/ML SYR IV PRN (21:27)
[2019-06-12] MEDS: MORPHINE 4 MG/ML SYR IV PRN (04:44)
[2019-06-12] MEDS: NA CHLORIDE 0.9% 1,000 ML IV SCH ×2 (04:46→13:18)
[2019-06-12] MEDS: CLINDAMYCIN INJ 600 MG in NA CHLORIDE 0.9% 50 ML IV SCH ×4 (05:48→12:00)
[2019-06-12 05:49] LABS: Hematocrit 45.3 % (39.6-49.0); RBC Red Blood Cell Count 5.29 M/uL (4.33-5.43)
[2019-06-12 05:50] LABS: Absolute Lymphocytes (CBC) 1.9 K/uL (0.7-4.9); Basophils % 0.5 % (0-1.3); Lymphocytes % 15.8 % (15.3-44.8); MPV 9.1 fL (7.6-11.3)
[2019-06-12 05:51] LABS: Protime INR 0.87
[2019-06-12 06:05] LABS: Magnesium 2.3 mg/dL (1.8-2.4); Potassium 4.3 mmol/L (3.5-5.1)
[2019-06-12] MEDS ORDERED: LIDOCAINE 1% W/EPI 1:100,000 MDV 20 ML VIAL ONE (08:46)
[2019-06-12] MEDS ORDERED: propofoL 200 MG/20 ML VIAL IV ONE (09:03)
[2019-06-12] MEDS ORDERED: LIDOCAINE 2% MPF 5 ML VIAL ONE (09:04)
[2019-06-12] MEDS ORDERED: FENTANYL CITR 100 MCG/2 ML ONE (09:06)
[2019-06-12] MEDS ORDERED: HYDROMORPHONE HCL 1 MG/ML INJ ONE ×3 (09:51→10:10)
[2019-06-12] MEDS ORDERED: MEPERIDINE HCL 50 MG/ML ONE ×2 (10:14→10:30)
[2019-06-12] MEDS ORDERED: KETOROLAC 30 MG/ML INJ ONE (10:22)
--- NOTE | 2019-06-12 14:07 | P.DS ---
Admission Date: 06/11/19 Discharge Date: 06/12/19 Disposition: ROUTINE DISCHARGE Discharge Condition: FAIR Reason for Admission: Facial pain and abscess Consultations: Hand Surgery-Dr. Kern - Problems (1) Facial abscess Current Visit: Yes Status: Acute (2) Asthma Current Visit: Yes Status: Chronic (3) Hyperlipidemia Current Visit: Yes Status: Chronic Brief History of Present Illness: 49-year-old changed presented to the emergency department with a complaint pain and swelling in the right nostril and has been present over the past 3 days. He stated pain had gotten progressively worse and swelling gotten bigger. He denied any fever. He denied any nasal discharge. CT facial bones in the ED the reported an abscess in the right nostril along with the perinasal soft tissue swelling indicating cellulitis. Patient was given a dose of clindamycin given that he has penicillin allergy, Dr. Galan was informed by the ED physician and patient admitted to the hospitalist service for further management. Hospital Course: Patient was seen and evaluated by Dr. Kern will performed incision and drainage and the wound packed. He was treated with IV clindamycin. Patient is deemed okay for discharge per Dr. Kern. He is prescribed Bactrim DS and Tylenol 3 p.r.n. for pain. He will follow with Dr. Kern on Tuesday next week in his office. Vital Signs/Physical Exam: Temp Pulse Resp BP Pulse Ox 97.6 F 89 18 142/66 H 96 06/12/19 04:00 06/12/19 04:00 06/12/19 04:44 06/12/19 04:00 06/12/19 04:44 General: Alert, In no apparent distress HEENT: Mucous membr. moist/pink, Other (I&D wound in the right nostril packed.) Respiratory: Clear to auscultation bilaterally, Normal air movement Cardiovascular: Regular rate/rhythm, Normal S1 S2 Neurological: Normal speech Laboratory Data at Discharge: WBC 11.8 K/uL (4.3-10.9) H 06/12/19 05:27 Hgb 14.8 g/dL (13.6-17.9) 06/12/19 05:27 Hct 45.3 % (39.6-49.0) 06/12/19 05:27 Plt Count 253 K/uL (152-406) 06/12/19 05:27 PT 10.3 SECONDS (9.5-12.5) 06/12/19 05:27 INR 0.87 06/12/19 05:27 Sodium 141 mmol/L (136-145) 06/12/19 05:27 Potassium 4.3 mmol/L (3.5-5.1) 06/12/19 05:27 BUN 14 mg/dL (7-18) 06/12/19 05:27 Creatinine 1.09 mg/dL (0.55-1.3) 06/12/19 05:27 Glucose 112 mg/dL (74-106) H 06/12/19 05:27 Phosphorus 3.0 mg/dL (2.5-4.9) 06/12/19 05:27 Magnesium 2.3 mg/dL (1.8-2.4) 06/12/19 05:27 Home Medications: Atorvastatin Calcium [Lipitor*] 10 mg PO BEDTIME 06/11/19 Budesonide/Formoterol Fumarate [Symbicort 160-4.5 Mcg Inhaler] 2 puff IH BID Codeine/APAP [Tylenol W/Codeine #3 tab] 1 tab PO Q6HP PRN #30 tab 06/12/19 Smz./Tmp. [Bactrim Ds 800 MG/160 MG] 1 tab PO BID #20 tab 06/12/19 New Medications: Codeine/APAP [Tylenol W/Codeine #3 tab] 1 tab PO Q6HP PRN #30 tab PRN Reason: Pain Smz./Tmp. [Bactrim Ds 800 MG/160 MG] 1 tab PO BID #20 tab Diet: AHA Activity: Ad rufina Followup: Cristobal Kern MD [ACTIVE - CAN ADMIT] - 1 Week
[2019-06-12 14:17] VITALS: BP 127/80; TEMP 97.2
[2019-06-12 14:35] VITALS: O2SAT 98
[2019-06-12] MEDS ORDERED: CODEINE 30MG/APAP 300MG TAB PO PRN (15:07)
--- NOTE | 2019-06-12 19:55 | HP ---
Date of Admission: 06/11/2019 History Of Present Illness: The patient is a 49-year-old white male with about a 5-day history of swelling in his right nostril, presented to ER, referred and admitted for abscess in the right nostril. Past Medical And Surgical History: appendectomy. Social History: Does not smoke. Drinks alcohol occasionally. Allergies: PENICILLIN. Medications: He takes medications for his high cholesterol. Physical Examination: VITAL SIGNS: He is 5 feet 9 inches, 220 pounds. NOSE: He has about a 5 mm mass swelling in the right nostril consistent with abscess. Assessment: Abscess. Plan: Incision and drainage. YUSUF Voice ID: [id number] [facility] HOSPITALJarrell
[2019-06-12] MEDS ORDERED: SMZ./TMP. 800/160 MG TABLET PO SCH (21:00)
--- NOTE | 2019-06-14 12:22 | OP ---
Surgeon: Cristobal Kern MD Preoperative Diagnosis: Abscess of the right nostril. Postoperative Diagnosis: Abscess of the right nostril. Procedure Performed: Excision of skin and subcutaneous tissue, incision and drainage of abscess. Anesthesia: General. Procedure In Detail: After satisfactory induction of general anesthesia, 0.5% Marcaine was used to inject the right nostril region. Elliptical incision was made a scaple. This showed the firm, white, yellow tissue consistent with MRSA. Cultures were taken. The wound was curetted, irrigated with dilute Betadine solution. Nu gauze dressings. Patient tolerated the procedure well and returned to Recovery. KIMO/KATHY Voice ID: [id number] Report ID: [id number] ELI
--- NOTE | 2019-06-14 17:15 | P.PN ---
Date of Service: 06/14/19 pt cx grew MRSA , already dc home on bactrim , no need to add anything
== END 2019-06-12 15:26 | disposition home or self-care (01) ==
LOC: ER 11:30 → ERHOLD 15:38 → 2ND 16:45
PROVIDERS: ADMIT Internal Medicine; ATTEND Internal Medicine
PROC: 099 Ear, Nose, Sinus, Drainage (ICD-10-PCS; principal; 2019-06-12 09:00)
DX: J34.0 Abscess, furuncle and carbuncle of nose (principal); E78.5 Hyperlipidemia, unspecified; J45.909 Unspecified asthma, uncomplicated; A49.02 Methicillin resistant Staphylococcus aureus infection, unspecified site; Z88.0 Allergy status to penicillin
CPT/HCPCS: 96365; 87070; 85025 ×2; 80048 ×2; 36415; 83735; 87205 ×2; 84100; 85610; 87075; 87077; 87186; 81003; 70487; 76377; 94760 ×3; 96375; 99285; 30000; Q9967; J2704; J3010 ×2; J2175 ×2; J1170 ×3; G0378 ×4; J7030 ×2; J2405

== ENCOUNTER 2019-08-22 07:16 | Emergency (ER) | payer BC ==
--- OUTSIDE RECORDS SUMMARY | 2019-08-22 07:17 | XMS REPORT ---
:1970 [facility] Address [address] [place] [address] Care Team Providers Name Role Phone Unavailable Unavailable Unavailable Problems This patient has no known problems. Allergies, Adverse Reactions, Alerts This patient has no known allergies or adverse reactions. Medications This patient has no known medications.
--- OUTSIDE RECORDS SUMMARY | 2019-08-22 07:18 | XMS REPORT ---
[...] End Status Dosage System Date Date ProAir [facility] [id number] 108 (90 Base) Inactive 2 puffs as RespiClick MCG/ACT needed Inhalation every 6 hrs Ventolin HFA ND [id number] 108 (90 Base) November 10, Active 2 puffs as MCG/ACT 2017 needed Inhalation every 6 hrs PRN COuhg, Shortness of breath and Wheezing Symbicort ND 25851898468 160-4.5 MCG/ACT November 05 Active 2 puffs Inhalation 2018 Twice a day Proventil HFA ND 78954964614 108 (90 Base) Inactive 2 puffs as MCG/ACT needed Inhalation every 6 hrs Duexis [facility] 31769780740 800-26.6 MG November 10December Active 1 tablet Orally Three 2017 23, times a day PRN 2018 Pain Lipitor ND 29500642979 10 MG Orally Active 1 tablet Once a day Fish Oil ND 59459684288 1000 MG Orally Active 1 capsule Once a day Results No Known Results Summary Purpose eClinicalWorks Submission
--- OUTSIDE RECORDS SUMMARY | 2019-08-22 07:18 | XMS REPORT ---
[...] End Date Status Dosage System Date Symbicort [facility] 60673466037 160-4.5 MCG/ACT Active 2 puffs Inhalation Twice a day Lipitor ND 08597012877 10 MG Orally Active 1 tablet Once a day Ventolin HFA [facility] 17804161460 108 (90 Base) Active 2 puffs as MCG/ACT needed Inhalation every 6 hrs PRN COuhg, Shortness of breath and Wheezing Fish Oil ND 93292607166 1000 MG Orally Active 1 capsule Once a day Duexis [facility] 73959918487 800-26.6 MG Active 1 tablet Orally Three times a day PRN Pain Results No Known Results Summary Purpose eClinicalWorks Submission
[2019-08-22] MEDS ORDERED: FENTANYL CITR 100 MCG/2 ML ONE (08:04)
[2019-08-22] MEDS ORDERED: NA CHLORIDE 0.9% 1,000 ML ONE (08:04)
[2019-08-22] MEDS ORDERED: SIMETHICONE 80 MG TAB ONE (08:04)
[2019-08-22 08:10] LABS: Absolute Lymphocytes (CBC) 1.6 K/uL (0.7-4.9); Basophils % 0.8 % (0-1.3); Hematocrit 47.9 % (39.6-49.0); Lymphocytes % 21.3 % (15.3-44.8); MPV 8.9 fL (7.6-11.3); RBC Red Blood Cell Count 5.65 M/uL (4.33-5.43)
--- NOTE | 2019-08-22 08:26 | RAD REPORT ---
EXAM DESCRIPTION: US - Abdomen Exam Limited - 08/22/2019 8:20 am CLINICAL HISTORY: ABD PAIN COMPARISON: Abdomen Exam Limited dated 07/31/2018 FINDINGS: The gallbladder demonstrates no gallstones. No pericholecystic fluid or gallbladder wall t hickening. The common bile duct is normal measuring 6 mm.. The liver demonstrates no findings of intrahepatic biliary dilatation. IMPRESSION: Unremarkable examination.
[2019-08-22 08:29] LABS: ALT/SGPT 42 U/L (12-78); AST/SGOT 25 U/L (15-37); Albumin 3.7 g/dL (3.4-5.0); Alkaline Phosphatase 83 U/L (45-117); BUN Blood Urea Nitrogen 12 mg/dL (7-18); Bicarbonate 27 mmol/L (21-32); Bilirubin Direct 0.2 mg/dL (0-0.2); Bilirubin Total 0.5 mg/dL (0.2-1.0); Glucose Level 107 mg/dL (74-106); Lipase 147 U/L (73-393); Potassium 4.1 mmol/L (3.5-5.1); Protein, Total 7.7 g/dL (6.4-8.2); Sodium Level 141 mmol/L (136-145); Troponin (Emerg Dept Use Only) < 0.02 ng/mL (0.0-0.045)
--- NOTE | 2019-08-22 09:31 | EDPHYS ---
Physician Documentation [facility] Name: Fito Christine Age: 49 yrs Sex: Male : 1970 Arrival Date: 08/22/2019 Time: 07:18 Bed 18 Private MD: Dylan [facility]ly [facility] ED Physician Elbert Bhakta HPI: 08/21 09:40 This 49 yrs old Male presents to ER via Ambulatory with complaints of snw Abdominal Pain. 09:40 The patient presents with abdominal pain in the right upper quadrant. Onset: The snw symptoms/episode began/occurred gradually, 5 day(s) ago. The symptoms do not radiate. Associated signs and symptoms: Pertinent positives: nausea. The symptoms are described as shooting. Severity of pain: At its worst the pain was moderate severe in the emergency department the pain is unchanged. The patient has experienced similar episodes in the past. The patient has not recently seen a physician. Historical: - Allergies: 07:43 PENICILLINS; ss - Home Meds: 08:30 atorvastatin Oral [Active]; Symbicort inhalation [Active]; jl7 08:32 Vascepa oral oral [Active]; jl7 - PMHx: 07:43 Asthma; High Cholesterol; ss - PSHx: 07:43 Appendectomy; Nasal surgery; ss - Immunization history:: Adult Immunizations up to date. - Social history:: Smoking status: Patient denies any tobacco usage or history of. ROS: 07:54 Constitutional: Negative for fever, chills, and weight loss, Eyes: Negative for injury, snw pain, redness, and discharge, ENT: Negative for injury, pain, and discharge, Neck: Negative for injury, pain, and swelling, Cardiovascular: Negative for chest pain, palpitations, and edema, Respiratory: Negative for shortness of breath, cough, wheezing, and pleuritic chest pain, Back: Negative for injury and pain, : Negative for injury, bleeding, discharge, and swelling, MS/Extremity: Negative for injury and deformity, Skin: Negative for injury, rash, and discoloration, Neuro: Negative for headache, weakness, numbness, tingling, and seizure. 07:54 Abdomen/GI: Positive for abdominal pain, nausea, of the right upper quadrant and right lower quadrant. Exam: 07:54 Constitutional: This is a well developed, well nourished patient who is awake, alert, snw and in no acute distress. Head/Face: Normocephalic, atraumatic. Eyes: Pupils equal round and reactive to light, extra-ocular motions intact. Lids and lashes normal. Conjunctiva and sclera are non-icteric and not injected. Cornea within normal limits. Periorbital areas with no swelling, redness, or edema. ENT: Nares patent. No nasal discharge, no septal abnormalities noted. Tympanic membranes are normal and external auditory canals are clear. Oropharynx with no redness, swelling, or masses, exudates, or evidence of obstruction, uvula midline. Mucous membranes moist. Neck: Trachea midline, no thyromegaly or masses palpated, and no cervical lymphadenopathy. Supple, full range of motion without nuchal rigidity, or vertebral point tenderness. No Meningismus. Chest/axilla: Normal chest wall appearance and motion. Nontender with no deformity. No lesions are appreciated. Cardiovascular: Regular rate and rhythm with a normal S1 and S2. No gallops, murmurs, or rubs. Normal PMI, no JVD. No pulse deficits. Respiratory: Lungs have equal breath sounds bilaterally, clear to auscultation and percussion. No rales, rhonchi or wheezes noted. No increased work of breathing, no retractions or nasal flaring. Back: No spinal tenderness. No costovertebral tenderness. Full range of motion. Skin: Warm, dry with normal turgor. Normal color with no rashes, no lesions, and no evidence of cellulitis. MS/ Extremity: Pulses equal, no cyanosis. Neurovascular intact. Full, normal range of motion. Neuro: Awake and alert, GCS 15, oriented to person, place, time, and situation. Cranial nerves II-XII grossly intact. Motor strength 5/5 in all extremities. Sensory grossly intact. Cerebellar exam normal. Normal gait. Psych: Awake, alert, with orientation to person, place and time. Behavior, mood, and affect are within normal limits. 07:54 Abdomen/GI: Inspection: abdomen appears normal, Bowel sounds: normal, Palpation: moderate abdominal tenderness, in the right upper quadrant, hx of appendectomy. Vital Signs: 07:39 BP 116 / 76; Pulse 81; Resp 16; Temp 97.7(O); Pulse Ox 96% on R/A; Weight 99.79 kg; ss Height 5 ft. 10 in. (177.80 cm); Pain 8/10; 08:20 BP 111 / 71; Pulse 78; Resp 17; Pulse Ox 97% ; Pain 7/10; jl7 09:52 BP 119 / 73; Pulse 72; Resp 17 S; Pulse Ox 97% on R/A; ca1 07:39 Body Mass Index 31.57 (99.79 kg, 177.80 cm) ss MDM: 07:56 Data reviewed: vital signs, nurses notes, lab test result(s), radiologic studies. Data snw interpreted: Pulse oximetry: on room air is 96 %. Interpretation: acceptable. ED course: takes Valsepa, atorvastatin, and singulair. 08:15 Patient medically screened. snw 08/21 07:48 Order name: Basic Metabolic Panel; Complete Time: 08:32 snw 08/21 07:48 Order name: CBC with Diff; Complete Time: 08:15 snw 08/21 07:48 Order name: Creatinine for Radiology; Complete Time: 08:27 snw 08/21 07:48 Order name: Hepatic Function; Complete Time: 08:32 snw 08/21 07:48 Order name: Lipase; Complete Time: 08:32 snw 08/21 07:48 Order name: Troponin (emerg Dept Use Only); Complete Time: 08:32 snw 08/21 07:48 Order name: IV Saline Lock; Complete Time: 08:01 snw 08/21 07:48 Order name: Labs collected and sent; Complete Time: 08:01 snw 08/21 07:48 Order name: US Abdomen Limited; Complete Time: 08:32 snw Administered Medications: 08:05 Drug: fentaNYL (PF) 25 mcg Route: IVP; Site: right antecubital; jl7 08:20 Follow up: Response: No adverse reaction; Pain is unchanged, physician notified jl7 08:06 Drug: Simethicone 240 mg Route: PO; jl7 08:34 Follow up: Response: No adverse reaction jl7 08:24 Drug: NS 0.9% 1000 ml Route: IV; Rate: 125 ml/hr; Site: right antecubital; jl7 08:25 Drug: fentaNYL (PF) 25 mcg Route: IVP; Site: right antecubital; jl7 Disposition: 16:17 Co-signature as Attending Physician, Elbert Bhakta MD I agree with the assessment and kdr plan of care. Disposition: 08/22/19 09:30 Discharged to Home. Impression: Upper abdominal pain, unspecified. - Condition is Stable. - Discharge Instructions: Abdominal Pain, Adult, Biliary Colic, Adult, Fat and Cholesterol Restricted Diet, Peptic Ulcer. - Prescriptions for Bentyl 20 mg Oral Tablet - take 1 tablet by ORAL route every 6 hours As needed; 20 tablet. Carafate 1 gram Oral Tablet - take 1 tablet by ORAL route 4 times per day take on an empty stomach, beginning on waking and last dose at bedtime; 100 tablet. Zofran 4 mg Oral Tablet - take 1 tablet by ORAL route every 12 hours As needed; 6 tablet. - Medication Reconciliation Form, Thank You Letter, Antibiotic Education, Prescription Opioid Use form. - Follow up: Emergency Department; When: As needed; Reason: Worsening of condition. Follow up: Silvino Richardson DO; When: 2 - 3 days; Reason: Recheck today's complaints, Continuance of care, Re-evaluation by your physician. Signatures: Dispatcher [employer] EDWV Elbert Bhakta MD MD [facility] Kathleen Meehan, PUBLISHING AGENT-C PUBLISHING AGENT-Csnw Kristin Campa RN RN ss Shauna Hatfield RN RN jl7 Keeley Wiley RN RN ca1 Corrections: (The following items were deleted from the chart) 10:03 09:30 08/22/2019 09:30 Discharged to Home. Impression: Upper abdominal pain, ca1 unspecified. Condition is Stable. Forms are Medication Reconciliation Form, Thank You Letter, Antibiotic Education, Prescription Opioid Use. Follow up: Emergency Department; When: As needed; Reason: Worsening of condition. Follow up: Silvino Richardson; When: 2 - 3 days; Reason: Recheck today's complaints, Continuance of care, Re-evaluation by your physician. snw
--- NOTE | 2019-08-22 09:31 | ER ---
Nurse's Notes [facility] Name: Fito Christine Age: 49 yrs Sex: Male : 1970 Arrival Date: 08/22/2019 Time: 07:18 Bed 18 Private MD: Silvino Richardson Diagnosis: Upper abdominal pain, unspecified Presentation: 08/21 07:39 Chief complaint: Patient states: sharp, RUQ pain that began 2-3 days ago with ss intermittent nausea. Coronavirus screen: The patient has NOT traveled to [place] in the past 14 days. Proceed with normal triage procedures. Ebola Screen: Patient denies exposure to infectious person. Patient denies travel to an Ebola-affected area in the 21 days before illness onset. Initial Sepsis Screen: Does the patient meet any 2 criteria? No. Patient's initial sepsis screen is negative. Does the patient have a suspected source of infection? No. Patient's initial sepsis screen is negative. Risk Assessment: Do you want to hurt yourself or someone else? Patient reports no desire to harm self or others. 07:39 Method Of Arrival: Ambulatory ss 07:39 Acuity: DIANE 3 ss Historical: - Allergies: 07:43 PENICILLINS; ss - Home Meds: 08:30 atorvastatin Oral [Active]; Symbicort inhalation [Active]; jl7 08:32 Vascepa oral oral [Active]; jl7 - PMHx: 07:43 Asthma; High Cholesterol; ss - PSHx: 07:43 Appendectomy; Nasal surgery; ss - Immunization history:: Adult Immunizations up to date. - Social history:: Smoking status: Patient denies any tobacco usage or history of. Screenin:03 Abuse screen: Denies threats or abuse. Denies injuries from another. Nutritional jl7 screening: No deficits noted. Tuberculosis screening: No symptoms or risk factors identified. Fall Risk IV access (20 points). Total [place] Fall Scale indicates No Risk (0-24 pts). Assessment: 08:03 General: Appears in no apparent distress. uncomfortable, Behavior is calm, cooperative, jl7 appropriate for age. Pain: Complains of pain in right upper quadrant Pain currently is 9 out of 10 on a pain scale. Quality of pain is described as sharp, stabbing, Pain began 1 day ago. Is intermittent. Neuro: Level of Consciousness is awake, alert, obeys commands, Oriented to person, place, time, situation. Cardiovascular: Patient's skin is warm and dry. Respiratory: Airway is patent Respiratory effort is even, unlabored, Respiratory pattern is regular, symmetrical. GI: Abdomen is round non-distended. Derm: Skin is pink, warm \T\ dry. 08:25 Reassessment: Pt reports pain level 7/10, ERP notified, VO for 25 mg Fentanyl IVP. jl7 09:52 Reassessment: Patient appears in no apparent distress at this time. Patient is alert, ca1 oriented x 3, equal unlabored respirations, skin warm/dry/pink. Vital Signs: 07:39 BP 116 / 76; Pulse 81; Resp 16; Temp 97.7(O); Pulse Ox 96% on R/A; Weight 99.79 kg; ss Height 5 ft. 10 in. (177.80 cm); Pain 8/10; 08:20 BP 111 / 71; Pulse 78; Resp 17; Pulse Ox 97% ; Pain 7/10; jl7 09:52 BP 119 / 73; Pulse 72; Resp 17 S; Pulse Ox 97% on R/A; ca1 07:39 Body Mass Index 31.57 (99.79 kg, 177.80 cm) ED Course: 07:18 Patient arrived in ED. rg4 07:18 Silvino Richardson DO is Private Physician. rg4 07:38 Shauna Hatfield, RN is Primary Nurse. jl7 07:41 Triage completed. ss 07:43 Arm band placed on right wrist. ss 07:47 [facility]C [facility] snw 07:47 Elbert Bhakta MD is Attending Physician. snw 07:58 Initial lab(s) drawn, by al, sent to lab. Inserted saline lock: 20 gauge in right dh3 antecubital area, using aseptic technique. Blood collected. 08:03 Patient has correct armband on for positive identification. Bed in low position. Call jl7 light in reach. Side rails up X 1. Pulse ox on. NIBP on. 08:22 US Abdomen Limited In Process Unspecified. EDMS 09:30 Silvino Richardson DO is Referral Physician. snw 10:03 No provider procedures requiring assistance completed. IV discontinued, intact, ca1 bleeding controlled, No redness/swelling at site. Pressure dressing applied. Administered Medications: 08:05 Drug: fentaNYL (PF) 25 mcg Route: IVP; Site: right antecubital; 7 08:20 Follow up: Response: No adverse reaction; Pain is unchanged, physician notified jl7 08:06 Drug: Simethicone 240 mg Route: PO; jl7 08:34 Follow up: Response: No adverse reaction 08:24 Drug: NS 0.9% 1000 ml Route: IV; Rate: 125 ml/hr; Site: right antecubital; jl7 08:25 Drug: fentaNYL (PF) 25 mcg Route: IVP; Site: right antecubital; Outcome: 09:30 Discharge ordered by . snmaite 10:03 Discharged to home ambulatory, with family. ca1 10:03 Condition: stable 10:03 Discharge instructions given to patient, Instructed on discharge instructions, follow up and referral plans. medication usage, Demonstrated understanding of instructions, follow-up care, medications, Prescriptions given X 3. 10:03 Patient left the ED. ca1 Signatures: Dispatcher [employer] EDMS Kathleen Meehan, COUNTY LIBRARY DIRECTOR-C COUNTY LIBRARY DIRECTOR-Csnw Kristin Campa, RN RN Concepcion Graff4 Shauna Hatfield RN RN jl7 Nuzhat Varner 3 Keeley Wiley RN RN ca1
[2019-08-22 10:15] VITALS: TEMP 97.7
[2019-08-22 10:17] VITALS: O2SAT 97
[2019-08-22 10:19] VITALS: BP 119/73
== END 2019-08-22 10:03 | disposition home or self-care (01) ==
LOC: ER 07:16
DX: R10.10 Upper abdominal pain, unspecified (principal); J45.909 Unspecified asthma, uncomplicated; E78.00 Pure hypercholesterolemia, unspecified
CPT/HCPCS: 85025; 80048; 36415; 80076; 84484; 83690; 76705; 96374; 99284; J3010; J7030

== ENCOUNTER 2020-04-27 15:29 | Emergency (ER) | payer BC ==
--- OUTSIDE RECORDS SUMMARY | 2020-04-27 15:31 | XMS REPORT | Continuity of Care Document ---
:1970 Author Organization [facility] t Address [address] [place] [address] Care Team Providers Name Role Phone Duc ROWE Attending Clinician Problems Condition Condition Condition Status Onset Resolution Last Treating Co mments Source Name Details Category Date Date Treatment Clinician Date Asthma Asthma Problem Active [facility] acute acute [facility] exacerbati exacerbati l on on [facility] Right Right Problem Active [facility] elbow elbow [facility] - tendonitis tendonitis Me moria l [facility] Hyperlipid Hyperlipid Problem Active [facility] emia, emia, [facility] - mixed mixed [facility] l [facility] Malaise Malaise Problem Active [facility] and and [facility] - fatigue fatigue [facility] l [facility] Osteoarthr Osteoarthr Problem Active [facility] itis of itis of [facility] - knee, knee, Memoria unspecifie unspecifie l d d [facility] laterality laterality en t , , Clinics unspecifie unspecifie d d osteoarthr osteoarthr itis type itis type Cardiac Cardiac Problem Active [facility] disease disease [facility] - [facility] l [facility] Allergies, Adverse Reactions, Alerts This patient has no known allergies or adverse reactions. Medications Ordered Filled Start Stop Current Ordering Indication Dosage Frequency Signature Comments Components Source Medication Medication Date Date Medication? Clinician (SIG) Name Name Ventolin Ventolin Yes Silvino [address] [facility] HFA HFA 5-24 Richardson needed [facility] - 00:00: [facility] 00 l [facility] Duexis Duexis 2018- No Silvino [address] 5-24 07-23 Richardson [facility] Lipitor Lipitor Yes Silvino [address] [facility] Fish Oil Fish Oil Yes Silvino 1 capsule [facility] Symbicort Symbicort 2019- No Silvino [address] [facility] [address] 11-05 Richardson [facility] Procedures This patient has no known procedures. Encounters Start End Encounter Admission Attending Care Care Encounter Source Date/Time Date/Time Type Type Clinicians Facility Department ID 2019-12-18 2019-12-18 Telephone Duc [facility] [id number] 00:00:00 00:00:00 Luis Enrique Bowles [id number] [place] [id number] [place] [id number] 2017-12-07 2017-12-07 [facility] [id number] 09:45:00 09:45:00 [facility] 2017-11-10 2017-11-10 [facility] [id number] 11:15:00 11:15:00 [facility] Results This patient has no known results.
[2020-04-27 18:07] LABS: Absolute Lymphocytes (CBC) 1.7 K/uL (0.7-4.9); Basophils % 1.1 % (0-1.3); Hematocrit 45.1 % (39.6-49.0); MPV 8.9 fL (7.6-11.3); RBC Red Blood Cell Count 5.39 M/uL (4.33-5.43)
[2020-04-27 18:24] LABS: ALT/SGPT 57 U/L (12-78); Albumin 3.6 g/dL (3.4-5.0); Alkaline Phosphatase 111 U/L (45-117); BUN Blood Urea Nitrogen 21 mg/dL (7-18); Bicarbonate 29 mmol/L (21-32); Bilirubin Direct < 0.1 mg/dL (0-0.2); Bilirubin Total 0.3 mg/dL (0.2-1.0); Glucose Level 100 mg/dL (74-106); Lipase 167 U/L (73-393); Protein, Total 7.5 g/dL (6.4-8.2); Sodium Level 140 mmol/L (136-145)
[2020-04-27] MEDS ORDERED: IPRATROPIUM BROM 0.5MG/2.5ML ONE (18:24)
[2020-04-27] MEDS ORDERED: ALBUTEROL 2.5 MG/3 ML NEB SOL ONE (18:24)
[2020-04-27] MEDS ORDERED: METHYLPREDNISOLONE 125 MG INJ ONE (18:24)
[2020-04-27 18:25] LABS: AST/SGOT 41 U/L (15-37); Potassium 4.2 mmol/L (3.5-5.1)
[2020-04-27] MEDS ORDERED: KETOROLAC 30 MG/ML INJ ONE ×2 (18:37→18:49)
--- NOTE | 2020-04-27 18:37 | RAD REPORT ---
EXAM DESCRIPTION: RAD - Chest Single View - 04/27/2020 5:47 pm CLINICAL HISTORY: Cough;SOB Chest pain. COMPARISON: No comparisons FINDINGS: Portable technique limits examination quality. The lungs are grossly clear. The heart is normal in size. No displaced fractures. IMPRESSION: No acute intrathoracic process suspected.
--- NOTE | 2020-04-27 20:10 | RAD REPORT ---
EXAM DESCRIPTION: CTAbdomen Pelvis W Contrast - 04/27/2020 7:57 pm CLINICAL HISTORY: Abdominal pain. ABD PAIN COMPARISON: No comparisons TECHNIQUE: Biphasic CT imaging of the abdomen and pelvis was performed with 100 ml non-ionic IV cont rast. All CT scans are performed using dose optimization technique as appropriate and may include automated exposure control or mA/KV adjustment according to patient size. FINDINGS: The lung bases are clear. The liver, spleen, pancreas, adrenal glands and kidneys are within normal limits. No bowel obstruction, free air, free fluid or abscess. Appendectomy. No evidence of significant lym phadenopathy. No suspicious bony findings. Bilateral fat containing inguinal hernias, slightly larger on the right. IMPRESSION: No acute intra-abdominal or pelvic finding.
--- NOTE | 2020-04-27 20:19 | ER ---
Nurse's Notes [facility] Name: Fito Christine Age: 50 yrs Sex: Male : 1970 Arrival Date: 04/27/2020 Time: 15:31 Bed 20 Private MD: Diagnosis: Infectious mononucleosis;Unspecified asthma with (acute) exacerbation Presentation: 04/27 15:45 Chief complaint: Sinus congestion, headache, sneezing, nonproductive cough, sore hb throat, body aches, and abdominal pain x 5 days, worse over last 2 days. Hx of asthma, had to use albuterol neb 4 times yesterday for SOB. Coronavirus screen: congestion, cough unrelated to allergies, difficulty breathing, muscle pain. Ebola Screen: No symptoms or risks identified at this time. Initial Sepsis Screen: Does the patient meet any 2 criteria? HR > 90 bpm. No. Patient's initial sepsis screen is negative. Does the patient have a suspected source of infection? No. Patient's initial sepsis screen is negative. Risk Assessment: Do you want to hurt yourself or someone else? Patient reports no desire to harm self or others. Onset of symptoms was April 23, 2020. 15:45 Method Of Arrival: Ambulatory hb 15:45 Acuity: DIANE 3 hb Historical: - Allergies: 15:48 PENICILLINS; hb - PMHx: 15:48 Asthma; High Cholesterol; hb - PSHx: 15:48 Appendectomy; Nasal surgery; hb - Immunization history:: Adult Immunizations up to date. - Social history:: Smoking status: Patient denies any tobacco usage or history of. Screenin:00 Abuse screen: Denies threats or abuse. Nutritional screening: No deficits noted. jb4 Tuberculosis screening: No symptoms or risk factors identified. Fall Risk None identified. Assessment: 19:00 General: Appears in no apparent distress. uncomfortable, Behavior is calm, cooperative, jb4 appropriate for age. Pain: Complains of pain in Headache. Pain does not radiate. Pain currently is 6 out of 10 on a pain scale. Neuro: Level of Consciousness is awake, alert, obeys commands, Oriented to person, place, time, situation. Cardiovascular: Patient's skin is warm and dry. Respiratory: Airway is patent Respiratory effort is even, unlabored, Respiratory pattern is regular, symmetrical, Breath sounds are clear bilaterally. GI: No signs and/or symptoms were reported involving the gastrointestinal system. : No signs and/or symptoms were reported regarding the genitourinary system. EENT: No signs and/or symptoms were reported regarding the EENT system. Derm: Skin is intact, Skin is pink, warm \T\ dry. Musculoskeletal: Circulation, motion, and sensation intact. Range of motion: intact in all extremities. 20:30 Reassessment: Patient appears in no apparent distress at this time. Patient and/or jb4 family updated on plan of care and expected duration. Pain level reassessed. Patient is alert, oriented x 3, equal unlabored respirations, skin warm/dry/pink. Patient states feeling better. Vital Signs: 15:45 BP 155 / 96; Pulse 105; Resp 18; Temp 98.5; Pulse Ox 97% on R/A; Pain 8/10; hb 18:20 BP 138 / 85; Pulse 106; Resp 18; Pulse Ox 95% on R/A; ll1 19:15 BP 140 / 78; Pulse 96; Resp 16; Pulse Ox 100% on R/A; jb4 20:15 BP 137 / 84; Pulse 92; Resp 16; Pulse Ox 100% on R/A; jb4 ED Course: 15:31 Patient arrived in ED. ds1 15:48 Triage completed. hb 15:48 Arm band placed on. hb 17:03 Julio Fabian NP is PHCP. pm1 17:03 Hudson Clement MD is Attending Physician. pm1 17:04 Arturo Tyler, LAURA is Primary Nurse. ll1 17:48 Chest Single View XRAY In Process Unspecified. EDMS 18:21 Inserted saline lock: 20 gauge in right antecubital area, using aseptic technique. ll1 Blood collected. 19:00 Patient has correct armband on for positive identification. Bed in low position. Call jb4 light in reach. Side rails up X 1. Pulse ox on. NIBP on. 19:14 Primary Nurse role handed off by Arturo Tyler, LAURA jb4 19:14 Faizan Lantigua, LAURA is Primary Nurse. jb4 19:57 CT Abd/Pelvis - IV Contrast Only In Process Unspecified. EDMS 20:48 No provider procedures requiring assistance completed. IV discontinued, intact, jb4 bleeding controlled, No redness/swelling at site. Pressure dressing applied. 20:49 Removal of peripheral IV. Catheter intact, dressing applied. jp3 Administered Medications: 18:20 Drug: Albuterol - atroVENT (3:1) (2.5 mg - 0.5 mg) 3 ml Route: Nebulizer; ll1 19:00 Follow up: Response: No adverse reaction; Marked relief of symptoms jb4 18:20 Drug: SOLU-Medrol 125 mg Route: IVP; Site: right antecubital; ll1 19:00 Follow up: Response: No adverse reaction; Marked relief of symptoms jb4 18:46 Drug: TORadol - Ketorolac 15 mg Route: IVP; Site: right antecubital; ll1 19:00 Follow up: Response: No adverse reaction; Pain is decreased jb4 Outcome: 20:19 Discharge ordered by MD. pm1 20:48 Discharged to home ambulatory, with family. jb4 20:48 Condition: stable 20:48 Discharge instructions given to patient, family, Instructed on discharge instructions, follow up and referral plans. medication usage, Demonstrated understanding of instructions, follow-up care, medications, Prescriptions given X 2. 20:57 Patient left the ED. jb4 Addendum: 04/30/2020 16:54 Addendum: COVID-19 Result: Negative result given to RN to notify pt. Notified pt of a a5 negative COVID 19 swab results. Pt advised that even with a negative test result they should remain in isolation until symptom free for 3 days without medication. Pt also advised to return to the ED for worsening symptoms. Signatures: Dispatcher [facility] Julianna Burris ds1 Constanza Summers, RN RN aa5 Julio Fabian, STEFAN ONLINE ADVERTISING MANAGER pm1 Monserrat Escalera RN RN hb Bryson, James, RN RN jb4 Danish Geiger jp3 Arturo Tyler RN RN ll1 Corrections: (The following items were deleted from the chart) 04/27 23:15 19:00 Patient has correct armband on for positive identification. Placed in gown. Bed jb4 in low position. Call light in reach. Side rails up X 1. jb4
--- NOTE | 2020-04-27 20:19 | EDPHYS ---
Physician Documentation [facility] Name: Fito Christine Age: 50 yrs Sex: Male : 1970 Arrival Date: 04/27/2020 Time: 15:31 Bed 20 Private MD: ED Physician Hudson Clement HPI: 04/27 17:16 This 50 yrs old Male presents to ER via Ambulatory with complaints of pm1 Sneezing, Back Pain, Headache. 17:16 The patient or guardian reports sinus congestion, sore throat, FELTON, sneezing, body pm1 aches. Abdominal pain onset yesterday. SOB for the past 2 days with increased use of breathing treatments at home. Severity of symptoms: in the emergency department the symptoms are actually worse. Modifying factors: The symptoms are alleviated by nothing, the symptoms are aggravated by nothing. It is unknown whether or not the patient has recently seen a physician. Historical: - Allergies: 15:48 PENICILLINS; hb - PMHx: 15:48 Asthma; High Cholesterol; hb - PSHx: 15:48 Appendectomy; Nasal surgery; hb - Immunization history:: Adult Immunizations up to date. - Social history:: Smoking status: Patient denies any tobacco usage or history of. ROS: 17:16 Eyes: Negative for injury, pain, redness, and discharge. pm1 17:16 Cardiovascular: Negative for chest pain, palpitations, and edema. 17:16 Back: Negative for injury and pain, MS/Extremity: Negative for injury and deformity, Skin: Negative for injury, rash, and discoloration. 17:16 Constitutional: Positive for body aches, Negative for fever. 17:16 ENT: Positive for sinus congestion, sore throat, Negative for ear pain. 17:16 Respiratory: Positive for cough, shortness of breath. 17:16 Abdomen/GI: Positive for abdominal pain, Negative for nausea, vomiting, and diarrhea, constipation. 17:16 Neuro: Positive for headache. Exam: 17:16 Constitutional: This is a well developed, well nourished patient who is awake, alert, pm1 and in no acute distress. Head/Face: Normocephalic, atraumatic. 17:16 Neck: Trachea midline, no thyromegaly or masses palpated, and no cervical lymphadenopathy. Supple, full range of motion without nuchal rigidity, or vertebral point tenderness. No Meningismus. Cardiovascular: Regular rate and rhythm with a normal S1 and S2. No gallops, murmurs, or rubs. Normal PMI, no JVD. No pulse deficits. 17:16 Back: No spinal tenderness. No costovertebral tenderness. Full range of motion. Skin: Warm, dry with normal turgor. Normal color with no rashes, no lesions, and no evidence of cellulitis. MS/ Extremity: Pulses equal, no cyanosis. Neurovascular intact. Full, normal range of motion. 17:16 ENT: External ear(s): are unremarkable, Ear canal(s): are normal, TM's: are normal, Nose: is normal, Mouth: is normal, Posterior pharynx: erythema, that is mild, exudate, is not appreciated, peritonsillar mass, is not appreciated. 17:16 Respiratory: the patient does not display signs of respiratory distress, Breath sounds: decreased breath sounds, diffuse, wheezing: is not appreciated. 17:16 Abdomen/GI: Inspection: obese Palpation: abdomen is soft and non-tender, in all quadrants. 17:16 Neuro: Exam negative for acute changes, Orientation: is normal, Mentation: is normal, Motor: is normal, moves all fours. Vital Signs: 15:45 BP 155 / 96; Pulse 105; Resp 18; Temp 98.5; Pulse Ox 97% on R/A; Pain 8/10; hb 18:20 BP 138 / 85; Pulse 106; Resp 18; Pulse Ox 95% on R/A; ll1 19:15 BP 140 / 78; Pulse 96; Resp 16; Pulse Ox 100% on R/A; jb4 20:15 BP 137 / 84; Pulse 92; Resp 16; Pulse Ox 100% on R/A; jb4 MDM: 17:04 Patient medically screened. pm1 17:14 Data reviewed: vital signs. Data interpreted: Pulse oximetry: on room air is 97 %. pm1 Interpretation: normal. 18:26 ED course: Patient informed of positive mono. Reports that he shared a beer with a pm1 friend on Tuesday. 18:40 ED course: Patient reports improvement with breathing treatment in the ER. He felt pm1 tight on arrival. 20:18 Counseling: I had a detailed discussion with the patient and/or guardian regarding: the pm1 historical points, exam findings, and any diagnostic results supporting the discharge/admit diagnosis, lab results, radiology results, the need for outpatient follow up, to return to the emergency department if symptoms worsen or persist or if there are any questions or concerns that arise at home, pending covid test in 2-3 days. 04/27 17:13 Order name: Flu; Complete Time: 19:04 pm1 04/27 17:13 Order name: Strep; Complete Time: 18:30 pm1 04/27 17:13 Order name: [place] Screen Profile; Complete Time: 18:21 pm1 04/27 17:13 Order name: COVID-19 pm1 04/27 17:13 Order name: Basic Metabolic Panel; Complete Time: 18:30 pm1 04/27 17:13 Order name: CBC with Diff; Complete Time: 18:20 pm1 04/27 17:13 Order name: Hepatic Function; Complete Time: 18:30 pm1 04/27 17:13 Order name: Lipase; Complete Time: 18:30 pm1 04/27 17:13 Order name: Chest Single View XRAY; Complete Time: 18:40 pm1 04/27 18:23 Order name: CT Abd/Pelvis - IV Contrast Only; Complete Time: 20:11 pm1 04/27 18:39 Order name: Throat Culture EDMS 04/27 17:13 Order name: IV Saline Lock; Complete Time: 18:09 pm1 04/27 17:13 Order name: Labs collected and sent; Complete Time: 18:09 pm1 Administered Medications: 18:20 Drug: Albuterol - atroVENT (3:1) (2.5 mg - 0.5 mg) 3 ml Route: Nebulizer; ll1 19:00 Follow up: Response: No adverse reaction; Marked relief of symptoms jb4 18:20 Drug: SOLU-Medrol 125 mg Route: IVP; Site: right antecubital; ll1 19:00 Follow up: Response: No adverse reaction; Marked relief of symptoms jb4 18:46 Drug: TORadol - Ketorolac 15 mg Route: IVP; Site: right antecubital; ll1 19:00 Follow up: Response: No adverse reaction; Pain is decreased jb4 Disposition: 04/28 09:05 Co-signature as Attending Physician, Hudson Clement MD I agree with the assessment and niles plan of care. Disposition: 04/27/20 20:19 Discharged to Home. Impression: Infectious mononucleosis, Unspecified asthma with (acute) exacerbation. - Condition is Stable. - Discharge Instructions: Asthma, Adult, Infectious Mononucleosis. - Prescriptions for Tylenol- Codeine #3 300-30 mg Oral Tablet - take 2 tablets by ORAL route every 6 hours As needed; 20 tablet. Medrol (Braulio) 4 mg Oral Tablets, Dose Pack - take 1 tablet by ORAL route as directed - follow package instructions; 1 packet. - Work release form, Medication Reconciliation Form, Thank You Letter, Antibiotic Education, Prescription Opioid Use form. - Follow up: Emergency Department; When: As needed; Reason: Worsening of condition. Follow up: Private Physician; When: 2 - 3 days; Reason: Recheck today's complaints, Continuance of care, Re-evaluation by your physician. - Problem is new. - Symptoms have improved. Signatures: Dispatcher [employer] EDMS Hudson Clement MD MD cha Marinas, Patrick, STEFAN FARM MANAGEMENT SUPERVISOR pm1 Monserrat Escalera RN RN Faizan Lantigua RN RN jb4 Arturo Tyler RN RN ll1 Corrections: (The following items were deleted from the chart) 04/27 20:19 20:19 04/27/2020 20:19 Discharged to Home. Impression: Infectious mononucleosis. pm1 Condition is Stable. Forms are Medication Reconciliation Form, Thank You Letter, Antibiotic Education, Prescription Opioid Use. Follow up: Emergency Department; When: As needed; Reason: Worsening of condition. Follow up: Private Physician; When: 2 - 3 days; Reason: Recheck today's complaints, Continuance of care, Re-evaluation by your physician. Problem is new. Symptoms have improved. pm1 20:57 20:19 04/27/2020 20:19 Discharged to Home. Impression: Infectious mononucleosis; jb4 Unspecified asthma with (acute) exacerbation. Condition is Stable. Forms are Medication Reconciliation Form, Thank You Letter, Antibiotic Education, Prescription Opioid Use. Follow up: Emergency Department; When: As needed; Reason: Worsening of condition. Follow up: Private Physician; When: 2 - 3 days; Reason: Recheck today's complaints, Continuance of care, Re-evaluation by your physician. Problem is new. Symptoms have improved. pm1
[2020-04-27 21:47] VITALS: TEMP 98.5
[2020-04-27 21:48] VITALS: BP 138/85; O2SAT 95
== END 2020-04-27 20:57 | disposition home or self-care (01) ==
LOC: ER 15:29
DX: J45.901 Unspecified asthma with (acute) exacerbation (principal); Z20.828 Contact with and (suspected) exposure to other viral communicable diseases; B27.90 Infectious mononucleosis, unspecified without complication; Z88.0 Allergy status to penicillin
CPT/HCPCS: 87070; 85025; 80048; 36415; 86308; 80076; 87081; 83690; 87804 ×2; 74177; 71045; 96375; 96374; 99284; U0002; Q9967; J2930

== ENCOUNTER 2021-01-28 08:03 | Emergency (ER) | payer BC ==
--- OUTSIDE RECORDS SUMMARY | 2021-01-28 08:05 | XMS REPORT | Continuity of Care Document ---
:1970 Author Organization [facility] t Address [address] [place] [address] Care Team Providers Name Role Phone Edouard Mancini DO Attending Clinician Doctor Unassigned, Name Attending Clinician Unavailable Duc ROWE Attending Clinician Problems Condition Condition Condition Status Onset Resolution Last Treating Co mments Source Name Details Category Date Date Treatment Clinician Date Asthma Asthma Problem Active [facility] acute acute [facility] exacerbati exacerbati l on on Outpati ent Clinics Right Right Problem [facility] elbow elbow [facility] tendon[facility]itis [facility] Hyperlipid Hyperlipid Problem Active [facility] emia, emia, [facility] mixed mixed [facility] Malaise Malaise Problem Active [facility] - fatigue fatigue [facility] Osteoarthr Osteoarthr Problem Active [facility] itis of itis of [facility] - knee, knee, [facility] unspecifie unspecifie l d d [facility] laterality laterality en t , , Clinics unspecifie unspecifie d d osteoarthr osteoarthr itis type itis type Cardiac Cardiac Problem Active [facility] disease disease [facility] Allergies, Adverse Reactions, Alerts This patient has no known allergies or adverse reactions. Medications Ordered Filled Start Stop Current Ordering Indication Dosage Frequency Signature Comments Components Source Medication Medication Date Date Medication? Clinician (SIG) Name Name Ventolin Ventolin Yes Silvino [address] [facility] HFA HFA 5-24 [facility] needed [facility] - 00:00: [facility] 00 l Outpati ent Clinics Duexis Duexis 2018-0 2018- No Silvino [address] 11[facility]10 [facility] - 00:00: 00:00 [facility] 00 :00 l Outpati ent Clinics Lipitor Lipitor Yes Silvino [address] [facility] l Outpati [facility] Clinics Fish Oil Fish Oil Yes Silvino [address] [facility] Symbicort Symbicort 2019- No Silvino [address] 11[facility]05 [facility] - 00:00 [facility] :00 l Outpati ent Clinics Procedures This patient has no known procedures. Encounters Start End Encounter Admission Attending Care Care Encounter Source Date/Time Date/Time Type Type Clinicians Facility Department ID 2020-07-14 2020-07-14 Emergency [facility] [id number] 08:50:00 11:11:00 Valentina Bowles [id number] [place] [id number] [place] [id number] 2020-07-14 2020-07-14 Orders Doctor HARSHAD [id number] 00:00:00 00:00:00 Only Unassigned, JUDITH [id number] [place] [id number] 2019-12-18 2019-12-18 [place] [id number] 00:00:00 00:00:00 Harshad Bowles [id number] [place] [id number] [place] [id number] 2017-12-07 2017-12-07 [facility] [id number] 09:45:00 09:45:00 t [facility] Outpati ent Clinics 2017-11-10 2017-11-10 [facility] [id number] 11:15:00 11:15:00 [address] [facility] Outpati ent Clinics Results This patient has no known results.
[2021-01-28 08:41] LABS: Absolute Lymphocytes (CBC) 1.4 K/uL (0.7-4.9); Basophils % 0.9 % (0-1.3); Hematocrit 45.7 % (39.6-49.0); Lymphocytes % 20.5 % (15.3-44.8); MPV 8.2 fL (7.6-11.3); RBC Red Blood Cell Count 5.43 M/uL (4.33-5.43)
[2021-01-28 08:51] LABS: Albumin 3.6 g/dL (3.4-5.0); Bilirubin Direct 0.1 mg/dL (0-0.2); Bilirubin Total 0.4 mg/dL (0.2-1.0); Potassium 4.1 mmol/L (3.5-5.1); Protein, Total 7.6 g/dL (6.4-8.2)
--- NOTE | 2021-01-28 08:54 | RAD REPORT ---
EXAM DESCRIPTION: CTAbdomen Pelvis W Contrast - 01/28/2021 8:41 am CLINICAL HISTORY: Abdominal pain. ABD PAIN COMPARISON: <Comparisons> TECHNIQUE: Biphasic CT imaging of the abdomen and pelvis was performed with 100 ml non-ionic IV cont rast. All CT scans are performed using dose optimization technique as appropriate and may include automated exposure control or mA/KV adjustment according to patient size. FINDINGS: The lung bases are clear. The liver, spleen, pancreas, adrenal glands and kidneys are within normal limits. Small fat containing right greater than left inguinal hernias. No suspicious bony findings. IMPRESSION: No acute intra-abdominal or pelvic finding.
[2021-01-28] MEDS ORDERED: NA CHLORIDE 0.9% 1,000 ML ONE (09:24)
[2021-01-28] MEDS ORDERED: ONDANSETRON 4 MG/2 ML VIAL ONE (09:24)
[2021-01-28] MEDS ORDERED: KETOROLAC 30 MG/ML INJ ONE (09:24)
--- NOTE | 2021-01-28 09:42 | EDPHYS ---
Physician Documentation [facility] Name: Fito Christine Age: 51 yrs Sex: Male : 1970 Arrival Date: 01/28/2021 Time: 08:04 Bed Waiting Private MD: Dylan [facility] ED Physician Elbert Bhakta HPI: 01/28 08:44 This 51 yrs old Male presents to ER via Unassigned with complaints of kb Abdominal Pain. 08:44 The patient presents with abdominal pain in the lower abdomen. Onset: The kb symptoms/episode began/occurred 1 year(s) ago, and became worse last night. The symptoms do not radiate. Associated signs and symptoms: Pertinent positives: nausea, Pertinent negatives: diarrhea, fever, vomiting. The symptoms are described as constant. Modifying factors: The symptoms are alleviated by nothing, the symptoms are aggravated by nothing. Severity of pain: At its worst the pain was moderate in the emergency department the pain is unchanged. The patient has not experienced similar symptoms in the past. The patient has not recently seen a physician. Pt reports lower abd pain, worse with movement and sitting, that started about a year ago. States pt has progressively gotten worse and even more so last night. . Historical: - Allergies: 08:45 PENICILLINS; aa5 - Home Meds: 08:45 atorvastatin Oral [Active]; Vascepa Oral [Active]; Omeprazole Oral [Active]; aa5 - PMHx: 08:45 Asthma; High Cholesterol; GERD; aa5 - PSHx: 08:45 Appendectomy; aa5 - Immunization history:: Client reports receiving the 2nd dose of the Covid vaccine. - Social history:: Smoking status: Patient denies any tobacco usage or history of. ROS: 08:45 Constitutional: Negative for fever, chills, and weight loss. kb 08:45 Abdomen/GI: Positive for abdominal pain, nausea, Negative for vomiting, diarrhea, constipation. 08:45 All other systems are negative. Exam: 08:45 Constitutional: This is a well developed, well nourished patient who is awake, alert, kb and in no acute distress. Head/Face: Normocephalic, atraumatic. ENT: Moist Mucous membranes Cardiovascular: Regular rate and rhythm with a normal S1 and S2. No gallops, murmurs, or rubs. No pulse deficits. Respiratory: Respirations even and unlabored. No increased work of breathing, no retractions or nasal flaring. Skin: Warm, dry with normal turgor. Normal color. MS/ Extremity: Pulses equal, no cyanosis. Neurovascular intact. Full, normal range of motion. Neuro: Awake and alert, GCS 15, oriented to person, place, time, and situation. Moves all extremities. Normal gait. Psych: Awake, alert, with orientation to person, place and time. Behavior, mood, and affect are within normal limits. 08:45 Abdomen/GI: Inspection: abdomen appears normal, Bowel sounds: normal, in all quadrants, Palpation: soft, in all quadrants, mild abdominal tenderness, in the right lower quadrant and left lower quadrant. Vital Signs: 08:45 BP 152 / 84; Pulse 83; Resp 16 S; Temp 97.7(TE); Pulse Ox 99% on R/A; Weight 108.86 kg aa5 (R); Height 5 ft. 9 in. (175.26 cm) (R); Pain 9/10; 08:45 Body Mass Index 35.44 (108.86 kg, 175.26 cm) aa5 MDM: 08:19 Patient medically screened. kb 08:44 Data reviewed: vital signs, nurses notes. Data interpreted: Pulse oximetry: on room air kb is 100 %. Interpretation: normal. 08:59 Counseling: I had a detailed discussion with the patient and/or guardian regarding: the kb historical points, exam findings, and any diagnostic results supporting the discharge/admit diagnosis, lab results, radiology results, the need for outpatient follow up, a family practitioner, to return to the emergency department if symptoms worsen or persist or if there are any questions or concerns that arise at home. 01/28 08:21 Order name: Basic Metabolic Panel; Complete Time: 08:58 kb 01/28 08:21 Order name: CBC with Diff; Complete Time: 08:44 kb 01/28 08:21 Order name: Hepatic Function; Complete Time: 08:58 kb 01/28 08:21 Order name: Lipase; Complete Time: 08:58 kb 01/28 08:21 Order name: CT Abd/Pelvis - IV Contrast Only; Complete Time: 08:58 kb 01/28 08:21 Order name: IV Saline Lock kb 01/28 08:21 Order name: Labs collected and sent kb Administered Medications: 09:09 Drug: Ketorolac 30 mg Route: IVP; Site: right forearm; kb 09:09 Drug: Zofran (Ondansetron) 4 mg Route: IVP; Site: right forearm; kb 09:10 Drug: NS 0.9% 1000 ml Route: IV; Rate: 1000 ml; Site: right forearm; kb Disposition: 01/29 07:16 Co-signature as Attending Physician, Elbert Bhakta MD I agree with the assessment and kdr plan of care. Disposition Summary: 01/28/21 09:41 Discharge Ordered Location: Home kb Condition: Stable kb Diagnosis - Lower abdominal pain, unspecified kb Followup: kb - With: Emergency Department - When: As needed - Reason: Worsening of condition Followup: kb - With: Private Physician - When: 2 - 3 days - Reason: Recheck today's complaints, Continuance of care, Re-evaluation by your physician Discharge Instructions: - Discharge Summary Sheet kb - Abdominal Pain, Adult, [id number] kb Forms: - Work release form kb - Medication Reconciliation Form kb - Thank You Letter kb - Antibiotic Education kb - Prescription Opioid Use kb Prescriptions: - Zofran 4 mg Oral Tablet - take 1 tablet by ORAL route every 6 hours As needed; 20 tablet; Refills: 0, kb Product Selection Permitted - Cyclobenzaprine 10 mg Oral Tablet - take 1 tablet by ORAL route every 8 hours As needed; 21 tablet; Refills: 0, kb Product Selection Permitted - Diclofenac Sodium 75 mg Oral tablet,delayed release (DR/EC) - take 1 tablet by ORAL route 2 times per day As needed; 30 tablet; Refills: 0, kb Product Selection Permitted Signatures: Dispatcher [employer] Richa Dow, HEDIS REVIEW NURSE-C HEDIS REVIEW NURSE-Elbert Nickerson MD MD kdr Calderon, Audri, RN RN aa5
--- NOTE | 2021-01-30 09:13 | ER ---
Nurse's Notes [facility] Name: Fito Christine Age: 51 yrs Sex: Male : 1970 Arrival Date: 01/28/2021 Time: 08:04 Bed Waiting Private MD: Silvino Richardson Diagnosis: Lower abdominal pain, unspecified Presentation: 01/28 08:45 Chief complaint: Patient states: abdominal pain. aa5 08:45 Coronavirus screen: At this time, the client does not indicate any symptoms associated aa5 with coronavirus-19. Ebola Screen: Patient negative for fever greater than or equal to 101.5 degrees Fahrenheit, and additional compatible Ebola Virus Disease symptoms. Initial Sepsis Screen: Does the patient meet any 2 criteria? No. Patient's initial sepsis screen is negative. Does the patient have a suspected source of infection? No. Patient's initial sepsis screen is negative. Risk Assessment: Do you want to hurt yourself or someone else? Patient reports no desire to harm self or others. Onset of symptoms was 2020. 08:45 Method Of Arrival: Wheelchair aa5 08:45 Acuity: DIANE 4 aa5 Historical: - Allergies: 08:45 PENICILLINS; aa5 - Home Meds: 08:45 atorvastatin Oral [Active]; Vascepa Oral [Active]; Omeprazole Oral [Active]; aa5 - PMHx: 08:45 Asthma; High Cholesterol; GERD; aa5 - PSHx: 08:45 Appendectomy; aa5 - Immunization history:: Client reports receiving the 2nd dose of the Covid vaccine. - Social history:: Smoking status: Patient denies any tobacco usage or history of. Vital Signs: 08:45 BP 152 / 84; Pulse 83; Resp 16 S; Temp 97.7(TE); Pulse Ox 99% on R/A; Weight 108.86 kg aa5 (R); Height 5 ft. 9 in. (175.26 cm) (R); Pain 9/10; 08:45 Body Mass Index 35.44 (108.86 kg, 175.26 cm) aa5 ED Course: 08:04 Patient arrived in ED. as 08:05 Silvino Richardson DO is Private Physician. as 08:18 [facility] Thompson [facility]C [facility] kb 08:19 Elbert Bhakta MD is Attending Physician. kb 08:41 CT Abd/Pelvis - IV Contrast Only In Process Unspecified. EDMS 08:45 Arm band placed on. aa5 09:05 Inserted saline lock: 20 gauge in right forearm, using aseptic technique. ,using aa5 aseptic technique. inserted by CDL DRIVER. 10:00 No provider procedures requiring assistance completed. IV discontinued, intact, aa5 bleeding controlled, No redness/swelling at site. Pressure dressing applied. 13:21 Triage completed. aa5 Administered Medications: 09:09 Drug: Ketorolac 30 mg Route: IVP; Site: right forearm; kb 09:09 Drug: Zofran (Ondansetron) 4 mg Route: IVP; Site: right forearm; kb 09:10 Drug: NS 0.9% 1000 ml Route: IV; Rate: 1000 ml; Site: right forearm; kb Outcome: 09:41 Discharge ordered by MD. kb 10:08 Discharged to home by CDL DRIVER with 3 prescriptions aa5 10:09 Patient left the ED. kb Signatures: Dispatcher [employer] EDMS Richa Thompson, BEAR PAREDES-Josette Noe as Constanza Summers, RN RN aa5 Corrections: (The following items were deleted from the chart) 13:24 10:00 Patient did not have IV access during this emergency room visit. aa5 aa5
== END 2021-01-28 10:09 | disposition home or self-care (01) ==
LOC: ER 08:03
DX: R10.30 Lower abdominal pain, unspecified (principal); K21.9 Gastro-esophageal reflux disease without esophagitis; E78.00 Pure hypercholesterolemia, unspecified; Z88.0 Allergy status to penicillin
CPT/HCPCS: 85025; 80048; 36415; 82565; 80076; 83690; 74177; 96375; 96374; 99283; Q9967; J7030; J2405

== ENCOUNTER 2021-10-23 13:40 | Emergency (ER) | payer BC ==
--- OUTSIDE RECORDS SUMMARY | 2021-10-23 13:44 | XMS REPORT | Continuity of Care Document ---
:1970 Author Organization [facility] t Address [address] [place] [address] Care Team Providers Name Role Phone Josie RICHARDSON Primary Care Physician Unavailable Josie Richardson Attending Clinician Unavailable Niya MARTINEZ Attending Clinician Unavailable Niya Martinez NP Attending Clinician Edouard Mancini DO Attending Clinician Doctor Unassigned, Name Attending Clinician Unavailable Duc ROWE Attending Clinician [facility] Attending Clinician Unavailable Jemima PAREDES Attending Clinician JEMIMA Attending Clinician Unavailable Josie Richardson Admitting Clinician Unavailable Niya MARTINEZ Admitting Clinician Unavailable Payers Payer Name Policy Type Policy Number Effective Date Expiration Date Prasad cheema [facility] [id number] 2017 00:00:00 SELECT Problems Condition Condition Condition Status Onset Resolution Last Treating Co mments Source Name Details Category Date Date Treatment Clinician Date Obesity Obesity Disease Active NPI:183 (BMI (BMI 5-02 3428458 30-39.9) 30-39.9) 00:00: 00 Asthma Asthma Problem Active NPI:174 without without [id number] acute acute exacerbati exacerbati on on Right Right Problem Active NPI:174 elbow elbow [id number] tendonitis tendonitis Hyperlipid Hyperlipid Problem Active N PI:174 emia, emia, [id number] mixed mixed Malaise Malaise Problem Active NPI:174 and and 6640884 fatigue fatigue Osteoarthr Osteoarthr Problem Active N PI:174 itis of itis of 8440932 knee, knee, unspecifie unspecifie d d laterality laterality , , unspecifie unspecifie d d osteoarthr osteoarthr itis type itis type Cardiac Cardiac Problem Active NPI:174 disease disease [id number] Allergies, Adverse Reactions, Alerts Allergy Allergy Status Severity Reaction(s) Onset Inactive Treating Comm ents Source Name Type Date Date Clinician PENICILL DRUG Active Hives NPI:183 IN INGREDI 09-09 [id number] 00:00: 00 Penicill Propensi Active Hives NPI:18 3 in ty to 09-09 [id number] adverse 00:00: reaction 00 s Penicill Propensi Active Hives NPI:18 3 in ty to 09-09 [id number] adverse 00:00: reaction 00 s Social History Social Habit Start Date Stop Date Quantity Comments Source Exposure to Not sure NPI:[id number] 1 SARS-CoV-2 (event) History SDOH NPI:[id number] 81 Alcohol Frequency History SDOH NPI:[id number] 81 Alcohol Std Drinks History SDOH NPI:[id number] 81 Alcohol Binge History of tobacco Chews Tobacco NPI :[id number] use Alcohol intake 2021-04-19 2021-04-19 .86 /d NPI:[id number] 00:00:00 00:00:00 Alcohol Comment 2017-05-01 2017-05-01 every week. NPI:1831 [id number] 00:00:00 00:00:00 Tobacco use and 2017-05-01 2017-05-01 Current user NPI:810 [id number] exposure 00:00:00 00:00:00 Sex [birth year] At [birth year] NPI:76339 60649 00:00:00 00:00:00 Smoking Status Start Date Stop Date Source Never smoker Medications Ordered Filled Start Stop Current Ordering Indication Dosage Frequency Signature Comments Components Source Medication Medication Date Date Medication? Clinician (SIG) Name Name ipratropium 2020-06- No 3mL 3 mL, NPI: 183 -albuteroL 04-19 Inhalation 13 45749 (DUONEB) 19:45: 18:53 , ONCE, 1 0.5 mg-3 00 :00 dose, On mg(2.5 mg Sun base)/3 mL 04/19/21 nebulizer at 1445, solution 3 Routine mL magnesium 2020-06 No 2g 2 g, IV NPI: 183 sulfate in 04-19 Piggyback, 13 34783 water 2 18:15: 17:37 ONCE, 1 gram/50 mL 00 :00 dose, On (4 %) Sun infusion 2 04/19/21 g at 1315, QUITA methylpredn 2020-06- No 125mg 125 mg, IV NPI:183 isolone sod 04-19 Piggyback, 1 [id number] succ 17:15: 16:41 ONCE, 1 (SOLU-MEDRO 00 :00 dose, On L) Sun injection 04/19/21 125 mg at 1215, STAT ipratropium 2020-06 No 3mL 3 mL, NPI: 183 -albuteroL 04-19 Inhalation 13 29573 (DUONEB) 17:15: 16:25 , ONCE, 1 0.5 mg-3 00 :00 dose, On mg(2.5 mg Sun base)/3 mL 04/19/21 nebulizer at 1215, solution 3 Routine mL predniSONE 2020-06 Yes [id number] 20mg Take 1 NPI:183 20 mg tablet by [id number] tablet 00:00: mouth 2 00 (two) times daily. budesonide- 2020-06 Yes [id number] 2{puff} Inhale 2 NPI:183 formoteroL 0- Puffs 2 [id number] 1 160-4.5 00:00: (two) mcg/actuati 00 times on inhaler daily. levoFLOXaci 2020-06- No [id number] 750mg Take 1 NPI:183 n 750 mg 11-[place] [id number] tablet 00:00: 05:59 mouth 00 :00 every 24 (twenty-fo ur) hours for 10 days. predniSONE 2020- No [id number] 50mg Take 5 NPI:183 10 mg 07-15 tablets by [id number] tablet 00:00: 05:59 mouth 00 :00 daily for 4 days. predniSONE 2020- No 60mg 60 mg, NPI: 183 (DELTASONE) 07-14 Oral, [id number] 1 tablet 60 16:30: 15:48 ONCE, 1 mg 00 :00 dose, 07/14/20 at 1030, QUITA ipratropium 2020- No .5mg 0.5 mg, [facility] I:183 (ATROVENT) 07-14 Inhalation 13 20063 0.02 % 15:30: 15:34 , ONCE, 1 nebulizer 00 :00 dose, Mon solution 07/14/20 at 0.5 mg 0930, QUITA albuterol 2020- No 7.5mg 7.5 mg, NPI :183 (PROVENTIL) 07-14 Inhalation 1 [id number] 2.5 mg /3 15:30: 15:34 , ONCE, 1 mL (0.083 00 :00 dose, Mon %) 07/14/20 at nebulizer 0930, STAT solution 7.5 mg budesonide- Yes [id number] 2{puff} Inhale 2 NPI:183 formoteroL 1-25 Puffs 2 [id number] 1 (SYMBICORT) 00:00: (two) 160-4.5 00 times mcg/actuati daily. on inhaler albuterol Yes [id number] 2{puff} Inhale 2 NPI:183 90 1-25 Puffs [id number] mcg/actuati 00:00: every 4 on inhaler 00 (four) hours as needed for Wheezing or Shortness of Breath. albuterol Yes [id number] 2.5mg Inhale 3 NPI:183 2.5 mg /3 1-25 mL every 4 1318 781 mL (0.083 00:00: (four) %) 00 hours as nebulizer needed for solution Wheezing or Shortness of Breath. albuterol Yes [id number] 2{puff} Inhale 2 NPI:183 90 1-25 Puffs [id number] mcg/actuati 00:00: every 4 on inhaler 00 (four) hours as needed for Wheezing or Shortness of Breath. albuterol Yes [id number] 2.5mg Inhale 3 NPI:183 2.5 mg /3 1-25 mL every 4 1318 781 mL (0.083 00:00: (four) %) 00 hours as nebulizer needed for solution Wheezing or Shortness of Breath. budesonide- 2020-0 2020- No [id number] 2{puff} Inhale 2 NPI:183 formoteroL 1-25 10-31 Puffs 2 40901 81 (SYMBICORT) 00:00: 00:00 (two) 160-4.5 00 :00 times mcg/actuati daily. on inhaler OMEPRAZOLE 2020-0 Yes Take by NPI :183 ORAL 6-29 mouth. [id number] 13:30: 22 MELOXICAM 2020-0 Yes Take by NPI: 183 ORAL 6-29 mouth. [id number] 13:30: 22 OMEPRAZOLE 2020-0 Yes Take by NPI :183 ORAL 6-29 mouth. [id number] 13:30: 22 MELOXICAM 2020-0 Yes Take by NPI: 183 ORAL 6-29 mouth. [id number] 13:30: 22 OMEPRAZOLE 2020-0 Yes Take by NPI :183 ORAL 6-29 mouth. [id number] 13:30: 22 MELOXICAM 2020-0 Yes Take by NPI: 183 ORAL 6-29 mouth. [id number] 13:30: 22 OMEPRAZOLE 2020-0 Yes Take by NPI :183 ORAL 6-29 mouth. [id number] 13:30: 22 MELOXICAM 2020-0 Yes Take by NPI: 183 ORAL 6-29 mouth. [id number] 13:30: 22 OMEPRAZOLE 2020-0 Yes Take by NPI :183 ORAL 6-29 mouth. [id number] 13:30: 22 MELOXICAM 2020-0 Yes Take by NPI: 183 ORAL 6-29 mouth. [id number] 13:30: 22 atorvastati 2020-0 Yes Take by [employer] OF SEC[employer]IES AND REAL [employer] I:183 n calcium 6-29 mouth. [id number] (ATORVASTAT 13:28: IN ORAL) 26 atorvastati 2020-0 Yes Take by [employer] OF SEC[employer]IES AND REAL [employer] I:183 n calcium 6-29 mouth. [id number] (ATORVASTAT 13:28: IN ORAL) 26 atorvastati 2020-0 Yes Take by [employer] OF SECURITIES AND REAL ESTATE I:183 n calcium 6-29 mouth. [id number] (ATORVASTAT 13:28: IN ORAL) 26 atorvastati 2020-0 Yes Take by [employer] OF SECURITIES AND REAL ESTATE I:183 n calcium 6-29 mouth. [id number] (ATORVASTAT 13:28: IN ORAL) 26 atorvastati 2020-0 Yes Take by [employer] OF SECURITIES AND REAL ESTATE I:183 n calcium 6-29 mouth. [id number] (ATORVASTAT 13:28: IN ORAL) 26 OMEPRAZOLE 2020-0 Yes Take by NPI :183 ORAL 6-29 mouth. [id number] 08:30: 22 MELOXICAM 2020-0 Yes Take by NPI: 183 ORAL 6-29 mouth. [id number] 08:30: 22 atorvastati 2020-0 Yes Take by [employer] OF SECURITIES AND REAL [employer] I:183 n calcium 6-29 mouth. [id number] (ATORVASTAT 08:28: IN ORAL) 26 VASCEPA 0.5 2020-0 Yes NPI:18 3 gram Cap 6-23 [id number] 00:00: 00 VASCEPA 0.5 2020-0 Yes NPI:18 3 gram Cap 6-23 [id number] 00:00: 00 VASCEPA 0.5 2020-0 Yes NPI:18 3 gram Cap 6-23 [id number] 00:00: 00 VASCEPA 0.5 2020-0 Yes NPI:18 3 gram Cap 6-23 [id number] 00:00: 00 VASCEPA 0.5 2020-0 Yes NPI:18 3 gram Cap 6-23 [id number] 00:00: 00 VASCEPA 0.5 2020-0 Yes NPI:18 3 gram Cap 6-23 [id number] 00:00: 00 VENTOLIN 2020-0 Yes NPI:183 HFA 90 6-02 [id number] mcg/actuati 00:00: on inhaler 00 VENTOLIN 2020-0 Yes NPI:183 HFA 90 6-02 [id number] mcg/actuati 00:00: on inhaler 00 VENTOLIN 2020-0 Yes NPI:183 HFA 90 6-02 [id number] mcg/actuati 00:00: on inhaler 00 VENTOLIN 2020-0 Yes NPI:183 HFA 90 6-02 [id number] mcg/actuati 00:00: on inhaler 00 VENTOLIN 2020-0 1- No NPI:183 HFA 90 6-02 - [id number] mcg/actuati 00:00: 00:00 on inhaler 00 :00 montelukast 2020-0 Yes NPI:18 3 10 mg 4-30 [id number] tablet 00:00: 00 montelukast 2020-0 Yes NPI:18 3 10 mg 4-30 [id number] tablet 00:00: 00 montelukast 2020-0 Yes NPI:18 3 10 mg 4-30 [id number] tablet 00:00: 00 montelukast 2020-0 Yes NPI:18 3 10 mg 4-30 [id number] tablet 00:00: 00 montelukast 2020-0 Yes NPI:18 3 10 mg 4-30 [id number] tablet 00:00: 00 montelukast 2020-0 Yes NPI:18 3 10 mg 4-30 [id number] tablet 00:00: 00 albuterol 2018-06 Yes [id number] 2{puff} Inhale 2 NPI:183 90 2-05 Puffs [id number] mcg/actuati 00:00: every 4 on inhaler 00 (four) hours as needed for Wheezing or Shortness of Breath. albuterol 2018-06 Yes [id number] 2.5mg Inhale 3 NPI:183 2.5 mg /3 2-05 mL every 4 1318 781 mL (0.083 00:00: (four) %) 00 hours. May nebulizer also solution nebulize one extra every 6 hours. albuterol 2018-06 Yes [id number] 2{puff} Inhale 2 NPI:183 90 2-05 Puffs [id number] mcg/actuati 00:00: every 4 on inhaler 00 (four) hours as needed for Wheezing or Shortness of Breath. albuterol 2018-06 Yes [id number] 2.5mg Inhale 3 NPI:183 2.5 mg /3 2-05 mL every 4 1318 781 mL (0.083 00:00: (four) %) 00 hours. May nebulizer also solution nebulize one extra every 6 hours. albuterol 2018-06 Yes [id number] 2{puff} Inhale 2 NPI:183 90 2-05 Puffs [id number] mcg/actuati 00:00: every 4 on inhaler 00 (four) hours as needed for Wheezing or Shortness of Breath. albuterol 2018-06 Yes [id number] 2.5mg Inhale 3 NPI:183 2.5 mg /3 2-05 mL every 4 1318 781 mL (0.083 00:00: (four) %) 00 hours. May nebulizer also solution nebulize one extra every 6 hours. albuterol 2018-06 Yes [id number] 2{puff} Inhale 2 NPI:183 90 2-05 Puffs [id number] mcg/actuati 00:00: every 4 on inhaler 00 (four) hours as needed for Wheezing or Shortness of Breath. albuterol 2018-06 Yes [id number] 2.5mg Inhale 3 NPI:183 2.5 mg /3 2-05 mL every 4 1318 781 mL (0.083 00:00: (four) %) 00 hours. May nebulizer also solution nebulize one extra every 6 hours. albuterol 2018-06- No [id number] 2{puff} Inhale 2 NPI:183 90 2-05 01-25 Puffs [id number] mcg/actuati 00:00: 00:00 every 4 on inhaler 00 :00 (four) hours as needed for Wheezing or Shortness of Breath. albuterol 2018-06- No [id number] 2.5mg Inhale 3 NPI:183 2.5 mg /3 2-05 01-25 mL every 4 131 8781 mL (0.083 00:00: 00:00 (four) %) 00 :00 hours. May nebulizer also solution nebulize one extra every 6 hours. tamsulosin 2018- Yes [id number] .4mg Take 1 N PI:183 0.4 mg 24 4-17 capsule by 1318 781 hr capsule 00:00: mouth at 00 bedtime. tamsulosin 2018- Yes [id number] .4mg Take 1 N PI:183 0.4 mg 24 4-17 capsule by 1318 781 hr capsule 00:00: mouth at 00 bedtime. tamsulosin 2019-0 Yes [id number] .4mg Take 1 N PI:183 0.4 mg 24 4-17 capsule by 1318 781 hr capsule 00:00: mouth at 00 bedtime. ketorolac 2018- Yes [id number] 10mg Take 1 [employer] I:183 10 mg 4-17 tablet by [id number] tablet 00:00: mouth 00 every 8 (eight) hours. ondansetron 2018- Yes [id number] 4mg Take 1 NPI:183 4 mg 4-17 tablet by [id number] disintegrat 00:00: mouth ing tablet 00 every 4 (four) hours as needed for Nausea and Vomiting (N/V). tamsulosin 2019-0 Yes [id number] .4mg Take 1 N PI:183 0.4 mg 24 4-17 capsule by 1318 781 hr capsule 00:00: mouth at 00 bedtime. ketorolac 2019-0 Yes [id number] 10mg Take 1 [employer] I:183 10 mg 4-17 tablet by [id number] tablet 00:00: mouth 00 every 8 (eight) hours. ondansetron 2019-0 Yes [id number] 4mg Take 1 NPI:183 4 mg 4-17 tablet by [id number] disintegrat 00:00: mouth ing tablet 00 every 4 (four) hours as needed for Nausea and Vomiting (N/V). tamsulosin 2019-0 Yes [id number] .4mg Take 1 N PI:183 0.4 mg 24 4-17 capsule by 1318 781 hr capsule 00:00: mouth at 00 bedtime. ketorolac 2019-0 Yes [id number] 10mg Take 1 [employer] I:183 10 mg 4-17 tablet by [id number] tablet 00:00: mouth 00 every 8 (eight) hours. ondansetron 2019-0 Yes [id number] 4mg Take 1 NPI:183 4 mg 4-17 tablet by [id number] disintegrat 00:00: mouth ing tablet 00 every 4 (four) hours as needed for Nausea and Vomiting (N/V). tamsulosin 2019-0 Yes [id number] .4mg Take 1 N PI:183 0.4 mg 24 4-17 capsule by 1318 781 hr capsule 00:00: mouth at 00 bedtime. ketorolac 2019-0 Yes [id number] 10mg Take 1 [employer] I:183 10 mg 4-17 tablet by [id number] tablet 00:00: mouth 00 every 8 (eight) hours. ondansetron 2019-0 Yes [id number] 4mg Take 1 NPI:183 4 mg 4-17 tablet by [id number] disintegrat 00:00: mouth ing tablet 00 every 4 (four) hours as needed for Nausea and Vomiting (N/V). ketorolac 2019-0 2020- No [id number] 10mg Take 1 N PI:183 10 mg 4-17 01-25 tablet by [id number] tablet 00:00: 00:00 mouth 00 :00 every 8 (eight) hours. ondansetron 1- No [id number] 4mg Take 1 NPI:183 4 mg 4-17 -25 tablet by [id number] disintegrat 00:00: 00:00 mouth ing tablet 00 :00 every 4 (four) hours as needed for Nausea and Vomiting (N/V). traMADOL 50 2017- Yes 50mg Take 1 NPI: 183 mg tablet 0-08 tablet by [id number] 81 00:00: mouth 00 every 6 (six) hours as needed for Pain (scale 4-6). ondansetron 2017- Yes 4mg Take 1 NPI: 183 4 mg 0-08 tablet by [id number] disintegrat 00:00: mouth ing tablet 00 every 8 (eight) hours as needed for Nausea and Vomiting (N/V). traMADOL 50 2017-06 Yes 50mg Take 1 NPI: 183 mg tablet 0-08 [place] [id number] 81 00:00: mouth 00 every 6 (six) hours as needed for Pain (scale 4-6). ondansetron 2017- Yes 4mg Take 1 NPI: 183 4 mg 0-08 tablet by [id number] disintegrat 00:00: mouth ing tablet 00 every 8 (eight) hours as needed for Nausea and Vomiting (N/V). traMADOL 50 2017-06 Yes 50mg Take 1 NPI: 183 mg tablet 0-08 tablet [place] [id number] 81 00:00: mouth 00 every 6 (six) hours as needed for Pain (scale 4-6). ondansetron 2017- Yes 4mg Take 1 NPI: 183 4 mg 0-08 tablet by [id number] disintegrat 00:00: mouth ing tablet 00 every 8 (eight) hours as needed for Nausea and Vomiting (N/V). traMADOL 50 2017-06 Yes 50mg Take 1 NPI: 183 mg tablet 0-08 tablet by [id number] 81 00:00: mouth 00 every 6 (six) hours as needed for Pain (scale 4-6). ondansetron 2017- Yes 4mg Take 1 NPI: 183 4 mg 0-08 tablet by [id number] disintegrat 00:00: mouth ing tablet 00 every 8 (eight) hours as needed for Nausea and Vomiting (N/V). traMADOL 50 2017-06- No 50mg Take 1 NPI :183 mg tablet 0-08 01-25 tablet by [id number] 781 00:00: 00:00 mouth 00 :00 every 6 (six) hours as needed for Pain (scale 4-6). ondansetron 2017-06- No 4mg Take 1 NPI :183 4 mg 0-08 01-25 tablet by [id number] disintegrat 00:00: 00:00 mouth ing tablet 00 :00 every 8 (eight) hours as needed for Nausea and Vomiting (N/V). albuterol 2017- Yes 2.5mg Inhale 3 NPI :183 2.5 mg /3 6-29 mL every 4 1318 781 mL (0.083 00:00: (four) %) 00 hours as nebulizer needed for solution Wheezing or Shortness of Breath. albuterol 2017-0 Yes 2{puff} Inhale 2 N PI:183 90 6-29 Puffs [id number] mcg/actuati 00:00: every 4 on inhaler 00 (four) hours as needed for Wheezing or Shortness of Breath. methylPREDN 2018-0 Yes Take by [employer]IES [employer] I:183 ISolone 6-29 mouth [id number] (MEDROL, 00:00: SEE-INSTRU PAUL,) 4 mg 00 CTIONS. tablets follow package directions albuterol 2018-0 Yes 2.5mg Inhale 3 NPI :183 2.5 mg /3 6-29 mL every 4 1318 781 mL (0.083 00:00: (four) %) 00 hours as nebulizer needed for solution Wheezing or Shortness of Breath. albuterol 2018-0 Yes 2{puff} Inhale 2 N PI:183 90 6-29 Puffs [id number] mcg/actuati 00:00: every 4 on inhaler 00 (four) hours as needed for Wheezing or Shortness of Breath. methylPREDN 2018-0 Yes Take by [employer]IES [employer] I:183 ISolone 6-29 mouth [id number] (MEDROL, 00:00: SEE-INSTRU PAUL,) 4 mg 00 CTIONS. tablets follow package directions albuterol 2018-0 Yes 2.5mg Inhale 3 NPI :183 2.5 mg /3 6-29 mL every 4 1318 781 mL (0.083 00:00: (four) %) 00 hours as nebulizer needed for solution Wheezing or Shortness of Breath. albuterol 2018-0 Yes 2{puff} Inhale 2 N PI:183 90 6-29 Puffs [id number] mcg/actuati 00:00: every 4 on inhaler 00 (four) hours as needed for Wheezing or Shortness of Breath. methylPREDN 2018-0 Yes Take by [employer]IES [employer] I:183 ISolone 6-29 mouth [id number] (MEDROL, 00:00: SEE-INSTRU PAUL,) 4 mg 00 CTIONS. tablets follow package directions albuterol 2018-0 Yes 2.5mg Inhale 3 NPI :183 2.5 mg /3 6-29 mL every 4 1318 781 mL (0.083 00:00: (four) %) 00 hours as nebulizer needed for solution Wheezing or Shortness of Breath. albuterol 2018-0 Yes 2{puff} Inhale 2 N PI:183 90 6-29 Puffs [id number] mcg/actuati 00:00: every 4 on inhaler 00 (four) hours as needed for Wheezing or Shortness of Breath. methylPREDN 2018-0 Yes Take by [employer]IES [employer] I:183 ISolone 6-29 mouth [id number] (MEDROL, 00:00: SEE-INSTRU PAUL,) 4 mg 00 CTIONS. tablets follow package directions albuterol 2018-0 2020- No 2.5mg Inhale 3 [employer] I:183 2.5 mg /3 6-29 01-25 mL every 4 131 8781 mL (0.083 00:00: 00:00 (four) %) 00 :00 hours as nebulizer needed for solution Wheezing or Shortness of Breath. albuterol 2018-0 2020- No 2{puff} Inhale 2 NPI:183 90 6-29 01-25 Puffs [id number] mcg/actuati 00:00: 00:00 every 4 on inhaler 00 :00 (four) hours as needed for Wheezing or Shortness of Breath. methylPREDN 2018-0 2020- No Take by N PI:183 ISolone 6-29 01-25 mouth [id number] (MEDROL, 00:00: 00:00 SEE-INSTRU PAUL,) 4 mg 00 :00 CTIONS. tablets follow package directions Ventolin Ventolin 2018-0 Yes Silvino 2 puffs as NPI:174 HFA HFA 11-10 Richardson needed [id number] 00:00: 00 Duexis Duexis 2017- 2018- No Silvino 1 tablet [employer] I:174 11-10- Richardson [id number] 00:00: 00:00 00 :00 ibuprofen Yes 800mg Take 1 NPI:1 83 800 mg 1-28 tablet by [id number] tablet 00:00: mouth 00 every 8 (eight) hours as needed for Pain (scale 1-3). ibuprofen 0 Yes 800mg Take 1 NPI:1 83 800 mg 1-28 tablet by [id number] tablet 00:00: mouth 00 every 8 (eight) hours as needed for Pain (scale 1-3). ibuprofen 0 Yes 800mg Take 1 NPI:1 83 800 mg 1-28 tablet by [id number] tablet 00:00: mouth 00 every 8 (eight) hours as needed for Pain (scale 1-3). ibuprofen Yes 800mg Take 1 NPI:1 83 800 mg 1-28 tablet by [id number] tablet 00:00: mouth 00 every 8 (eight) hours as needed for Pain (scale 1-3). ibuprofen 2020- No 800mg Take 1 NPI: 183 800 mg 1-28 -25 tablet by [id number] tablet 00:00: 00:00 mouth 00 :00 every 8 (eight) hours as needed for Pain (scale 1-3). acetaminoph 2017-0 Yes 1{tbl} Take 1 [employer] I:183 en-codeine 5-02 tablet by 1318 781 300-60 mg 00:00: mouth tablet 00 every 6 (six) hours as needed for Pain. acetaminoph 2017-0 Yes 1{tbl} Take 1 [employer] I:183 en-codeine 5-02 tablet by 1318 781 300-60 mg 00:00: mouth tablet 00 every 6 (six) hours as needed for Pain. acetaminoph 2017-0 Yes 1{tbl} Take 1 [employer] I:183 en-codeine 5-02 tablet by 1318 781 300-60 mg 00:00: mouth tablet 00 every 6 (six) hours as needed for Pain. acetaminoph 2017-0 Yes 1{tbl} Take 1 [employer] I:183 en-codeine 5-02 tablet by 1318 781 300-60 mg 00:00: mouth tablet 00 every 6 (six) hours as needed for Pain. acetaminoph 2020- No 1{tbl} Take 1 N PI:183 en-codeine 5-02 01-25 tablet by 131 8781 300-60 mg 00:00: 00:00 mouth tablet 00 :00 every 6 (six) hours as needed for Pain. budesonide- Yes 2{puff} Inhale 2 NPI:183 formoterol 3-23 Puffs 2 [id number] 1 (SYMBICORT) 00:00: (two) 160-4.5 00 times mcg/actuati daily. on inhaler budesonide Yes 2{puff} Inhale 2 NPI:183 formoterol 3-23 Puffs 2 745573 1 (SYMBICORT) 00:00: (two) 160-4.5 00 times mcg/actuati daily. on inhaler budesonide Yes 2{puff} Inhale 2 NPI:183 formoterol 3-23 Puffs 2 [id number] 1 (SYMBICORT) 00:00: (two) 160-4.5 00 times mcg/actuati daily. on inhaler budesonide Yes 2{puff} Inhale 2 NPI:183 formoterol 3-23 Puffs 2 113048 1 (SYMBICORT) 00:00: (two) 160-4.5 00 times mcg/actuati daily. on inhaler budesonide- 2020- No 2{puff} Inhale 2 NPI:183 formoterol 3-23 01-25 Puffs 2 18013 81 (SYMBICORT) 00:00: 00:00 (two) 160-4.5 00 :00 times mcg/actuati daily. on inhaler Lipitor Lipitor Yes Silvino 1 tablet NPI :174 Richardson [id number] Fish Oil Fish Oil Yes Silvino 1 capsule NPI:174 Richardson [id number] Symbicort Symbicort 2019- No Silvino 2 puffs NPI:174 05-19 Richardson [id number] 00:00 :00 Vital Signs Vital Name Observation Time Observation Value Comments Source Respiratory rate 2021-04-19 19:06:00 18 /min Oxygen saturation in 2021-04-19 19:06:00 100 /min Arterial blood by Pulse oximetry Systolic blood pressure 2021-04-19 19:00:00 123 mm[Hg] Diastolic blood 2021-04-19 19:00:00 78 mm[Hg] NPI:1 [id number] pressure Heart rate 2021-04-19 19:00:00 76 /min NPI:1831 [id number] Body temperature 2021-04-19 19:00:00 36.39 Karolina Body weight 2021-04-19 16:01:00 99.791 kg NPI:1831 [id number] BMI 2021-04-19 16:01:00 32.49 kg/m2 NPI:1831 [id number] Systolic blood pressure 2020-07-14 17:00:00 113 mm[Hg] Diastolic blood 2020-07-14 17:00:00 89 mm[Hg] NPI:1 [id number] pressure Heart rate 2020-07-14 17:00:00 93 /min NPI:1831 [id number] Respiratory rate 2020-07-14 17:00:00 18 /min Oxygen saturation in 2020-07-14 17:00:00 96 /min Arterial blood by Pulse oximetry Body temperature 2020-07-14 14:48:00 36.22 Karolina Body weight 2020-07-14 14:48:00 95.255 kg NPI:1831 [id number] BMI 2020-07-14 14:48:00 31.01 kg/m2 NPI:1831 [id number] Systolic blood pressure 2020-07-14 17:00:00 113 mm[Hg] Diastolic blood 2020-07-14 17:00:00 89 mm[Hg] NPI:1 [id number] pressure Heart rate 2020-07-14 17:00:00 93 /min NPI:1831 [id number] Respiratory rate 2020-07-14 17:00:00 18 /min Oxygen saturation in 2020-07-14 17:00:00 96 /min Arterial blood by Pulse oximetry Body temperature 2020-07-14 14:48:00 36.22 Karolina Body weight 2020-07-14 14:48:00 95.255 kg NPI:1831 [id number] BMI 2020-07-14 14:48:00 31.01 kg/m2 NPI:1831 [id number] Systolic blood pressure 2019-12-17 13:35:00 128 mm[Hg] Diastolic blood 2019-12-17 13:35:00 80 mm[Hg] NPI:1 [id number] pressure Heart rate 2019-12-17 13:35:00 83 /min NPI:1831 [id number] Body temperature 2019-12-17 13:35:00 36.67 Karolina Respiratory rate 2019-12-17 13:35:00 18 /min Body weight 2019-12-17 13:35:00 97.523 kg NPI:1831 [id number] BMI 2019-12-17 13:35:00 31.75 kg/m2 NPI:1831 [id number] Oxygen saturation in 2019-12-17 13:35:00 97 /min Arterial blood by Pulse oximetry Procedures Procedure Date / Time Performed Performing Clinician Sourluisa e XR CHEST 1 2021-04-19 17:23:31 Neisha Martinez NPI:[id number] CONSENT/REFUSAL FOR 2021-04-19 15:57:38 Doctor Unassigned, No DIRECTOR OF SECURITIES AND REAL ESTATE [id number] DIAGNOSIS AND TREATMENT Name COVID-19 (ID NOW RAPID 2020-07-14 16:00:00 Valentina Mancini DIRECTOR OF SECURITIES AND REAL ESTATE I:[id number] TESTING) XR CHEST 1 2020-07-14 15:37:51 Valentina Mancini NPI:[id number] NOTICE OF PRIVACY 2020-07-14 14:38:17 Doctor Unassigned, No PRACTICES Name CONSENT/REFUSAL FOR 2020-07-14 14:38:04 Doctor Unassigned, No DIRECTOR OF SECURITIES AND REAL ESTATE I:[id number] DIAGNOSIS AND TREATMENT Name Encounters Start End Encounter Admission Attending Care Care Encounter Source Date/Time Date/Time Type Type Clinicians Facility Department ID 2021-08-24 Outpatient Richardson, ST[facility]MLC [facility] [id number] NPI:174 16:02:01 Silvino [id number] 2021-07-15 Outpatient Richardson, [facility]C [facility] [id number] NPI:174 13:52:28 Silvino [id number] 2021-07-15 Outpatient Richardson, [facility]MLC [facility] [id number] NPI:174 13:51:06 Silvino [id number] 2021-07-15 Outpatient Richardson, [facility]MLC [facility] [id number] NPI:174 13:45:16 Silvino [id number] 2021-07-15 Outpatient Richardson, STLMLC [facility] [id number] NPI:174 13:39:18 Silvino [id number] 2021-07-15 Outpatient Richardson, STLMLC [facility] [id number] NPI:174 12:57:37 Silvino [id number] 2021-07-15 Outpatient Richardson, STLMLC ST[facility] [id number] NPI:174 12:42:11 Silvino [id number] 2021-07-15 Outpatient Richardson, STLMLC STLMLC [id number] NPI:174 12:41:42 Silvino [id number] 2021-07-15 Outpatient Richardson, STLMLC STLMLC [id number] NPI:174 12:33:49 Silvino [id number] 2021-07-15 Outpatient Richardson, STLMLC STLMLC [id number] NPI:174 12:05:38 Silvino [id number] 2021-07-15 Outpatient Richardson, STLMLC STLMLC [id number] NPI:174 11:58:42 Silvino [id number] 2021-07-15 Outpatient Richardson, STLMLC STLMLC [id number] NPI:174 11:21:32 Silvino [id number] 2021-07-15 Outpatient Richardson, STLMLC STLMLC [id number] NPI:174 11:06:46 Sivlino [id number] 2021-07-15 Outpatient Richardson, STLMLC [facility] [id number] NPI:174 11:06:21 Silvino [id number] 2021-07-15 Outpatient Richardson, STLMLC STLC [id number] NPI:174 11:06:13 Silvino [id number] 2021-07-15 Outpatient Richardson, STLMLC STLC [id number] NPI:174 11:05:36 Silvino [id number] 2021-07-15 Outpatient Richardson, STLMLC [facility] [id number] NPI:174 10:58:36 Silvino [id number] 2021-04-18 Emergency [facility] [id number] NPI:183 19:14:38 [id number] 2021-04-19 Emergency X [facility] ERT [id number] NPI:183 11:07:00 14:14:00 NEISHA [id number] 2021-04-19 2021-04-19 Emergency [facility] [id number] NPI:183 11:07:00 14:14:00 Neisha BOWLES [id number] [id number] [facility] 4.2.7.2.686 [place] [address] [id number] 2020-07-14 2020-07-14 Emergency [facility] [id number] 08:50:00 11:11:00 Valentina Bowles 350.1.13.10 [place] [address] [place] [phone] [facility] 2020-07-14 2020-07-14 Emergency [facility] [id number] NPI:183 08:50:00 11:11:00 Valentina Bowles [id number] [id number] [place] [address] [place] [phone] 084 2020-07-14 2020-07-14 Orders Doctor HARSHAD [id number] 00:00:00 00:00:00 Only Unassigned, JUDITH [id number] [place] [facility] 4.2.7.2.686 [id number] 2020-07-14 2020-07-14 Orders Doctor HARSHAD [id number] NPI:183 00:00:00 00:00:00 Only Unassigned, JUDITH [id number] [id number] [place] [facility] 4.2.7.2.686 [id number] 2019-12-18 2019-12-18 Telephone [facility] [id number] 00:00:00 00:00:00 Harshad Wilbur 350.1.13.10 [place] 4.2.7.2.686 [place] [id number] 2019-12-18 2019-12-18 [facility] [id number] NPI:183 00:00:00 00:00:00 Harshad Wilbur 350.1.13.10 [id number] [place] 4.2.7.2.686 [place] [id number] 2019-12-17 2019-12-17 Urgent Pob1, Acute Care Clinic [facility] 1. [id number] NPI:183 08:19:06 08:39:06 [facility] [id number] [id number] [place] 4.2.7.2.686 [place] [id number] [address] 2019-12-17 2019-12-17 [facility] [id number] NPI:183 08:20:00 08:20:00 [place] [id number] 2017-12-07 2017-12-07 [facility] [id number] NPI:174 09:45:00 09:45:00 [facility] 2017-11-10 2017-11-10 [facility] [id number] NPI:174 11:15:00 11:15:00 [facility] Results Test Description Test Time Test Comments Results Result Comments Source COVID-19 (ID NOW RAPID TESTING) 2020-07-14 17:11:00 Test Item Value Reference Range Interpretation Comme nts SARS-CoV-2 Rapid ID NOW (test code Not Detected Not Detected = 68278-8) JABIER (test code = JABIER) ID NOW COVID-19 Assay is an isothermal nucleic acid amplification test intended for the qualitative detection of nucleic acid from SARS-CoV-2 viral RNA in nasopharyngeal (DIRECTOR OF SECURITIES AND REAL ESTATE) specimens. It is used under Emergency Use Authorization (EUA) by FDA. The limit of detection (LOD) of the assay is 125 Genome Equivalents/mL. A positive result is indicative of the presence of SARS-CoV-2 RNA. ?Clinical correlation with patient history and other diagnostic information is necessary to determine patient infection status. A negative (Not Detected) result does not preclude SARS-CoV-2 infection. In patients with clinical symptoms and other tests that are consistent with SARS-CoV-2 infection, negative results should be treated as presumptive negative and a new specimen should be tested with alternative PCR molecular test. Invalid: Please collect a new specimen for repeat patient testing if clinically indicated. Lab Interpretation (test code = Normal [id number]) NPI:[id number] 15:50:48 No acute cardiopulmonary abnormality.PROCEDURE: XR CHEST 1 07/14/2020 9:33 AM CLINICAL INDICATION: sob COMPARISON: Radiograph of 12/16/2017 TECHNIQUE: frontal views of the chest FINDINGS: The lungs are clear. There is no pleural effusion. ?No pneumothorax. The cardiac size is normal. No aggressive osseous lesion. [facility], Radiant Results Inft User - 07/14/2020 9:51 AM CSTPROCEDURE: XR CHEST 1 07/14/2020 9:33 AMCLINICAL INDICATION: sob COMPARISON: Radiograph of 12/16/2017TECHNIQUE: frontal viewsof the chestFINDINGS:The lungs are clear. There is no pleural effusion. No pneumothorax. The cardiac size is normal. No aggressive osseous lesion.IMPRESSIONNo acute cardiopulmonary abnormality.
[2021-10-23] MEDS ORDERED: METHYLPREDNISOLONE 125 MG INJ ONE (14:35)
[2021-10-23] MEDS ORDERED: ALBUTEROL 2.5 MG/3 ML NEB SOL ONE (14:35)
[2021-10-23 14:39] LABS: Protime INR 0.96
[2021-10-23 14:41] LABS: Absolute Lymphocytes (CBC) 1.2 K/uL (0.7-4.9); Hematocrit 46.6 % (39.6-49.0); Lymphocytes % 11.4 % (15.3-44.8); MPV 8.5 fL (7.6-11.3); RBC Red Blood Cell Count 5.59 M/uL (4.33-5.43)
[2021-10-23 14:57] LABS: Albumin 3.4 g/dL (3.4-5.0); Bilirubin Direct 0.1 mg/dL (0-0.2); Bilirubin Total 0.4 mg/dL (0.2-1.0); Magnesium 2.2 mg/dL (1.8-2.4); Potassium 4.1 mmol/L (3.5-5.1); Protein, Total 7.7 g/dL (6.4-8.2); Troponin High Sensitivity 3.7 pg/mL (<58.9)
--- NOTE | 2021-10-23 15:47 | RAD REPORT ---
EXAM DESCRIPTION: Lindsey Single View10/23/2021 2:51 pm CLINICAL HISTORY: sob COMPARISON: 2019 FINDINGS: The lungs appear clear of acute infiltrate. The heart is normal size IMPRESSION: No acute abnormalities displayed
[2021-10-23] MEDS ORDERED: ONDANSETRON 4 MG/2 ML VIAL ONE (16:02)
[2021-10-23] MEDS ORDERED: FAMOTIDINE 20 MG/2 ML VIAL IV ONE (16:02)
[2021-10-23] MEDS ORDERED: NA CHLORIDE 0.9% 500 ML ONE (16:02)
[2021-10-23 16:43] LABS: SARS-COV-2 RT PCR NEGATIVE (NEGATIVE)
--- NOTE | 2021-10-23 17:01 | ER ---
Nurse's Notes [facility] Name: Fito Christine Age: 51 yrs Sex: Male : 1970 Arrival Date: 10/23/2021 Time: 13:43 Bed 24 Private MD: Diagnosis: Acute bronchitis, unspecified;Unspecified asthma with (acute) exacerbation Presentation: 10/23 13:48 Chief complaint: Patient states: thought i was getting the flu, is asthmatic, was told iw by his doctor to come get xray, is c/o diff breathing, chest feels heavy, body aches, headache, fever , symptoms since Tuesday. Coronavirus screen: Client presents with at least one sign or symptom that may indicate coronavirus-19. Ebola Screen: Patient negative for fever greater than or equal to 101.5 degrees Fahrenheit, and additional compatible Ebola Virus Disease symptoms Patient denies exposure to infectious person. Patient denies travel to an Ebola-affected area in the 21 days before illness onset. No symptoms or risks identified at this time. Initial Sepsis Screen: Does the patient meet any 2 criteria? No. Patient's initial sepsis screen is negative. Does the patient have a suspected source of infection? No. Patient's initial sepsis screen is negative. Risk Assessment: Do you want to hurt yourself or someone else? Patient reports no desire to harm self or others. Onset of symptoms was October 21, 2021. 13:48 Method Of Arrival: Ambulatory iw 13:48 Acuity: DIANE 3 iw Triage Assessment: 14:05 General: Appears in no apparent distress. Respiratory: Reports cough that is Onset: The ab2 symptoms/episode began/occurred at an unknown time. the patient reports symptoms have resolved. Historical: - Allergies: 13:50 PENICILLINS; iw - Home Meds: 13:50 Vascepa oral [Active]; Albuterol Inhl [Active]; atorvastatin Oral [Active]; Omeprazole iw Oral [Active]; - PMHx: 13:50 Asthma; GERD; High Cholesterol; iw - PSHx: 13:50 Appendectomy; iw - Immunization history:: Client reports receiving the 2nd dose of the Covid vaccine. - Social history:: Smoking status: Patient denies any tobacco usage or history of. Screenin:05 Abuse screen: Denies threats or abuse. Denies injuries from another. Nutritional ab2 screening: No deficits noted. Tuberculosis screening: No symptoms or risk factors identified. Fall Risk None identified. Assessment: 14:04 General: Appears in no apparent distress. comfortable, Behavior is calm, cooperative, ab2 appropriate for age. Pain: Complains of pain in whole body. Neuro: Level of Consciousness is awake, alert, obeys commands, Oriented to person, place, time, situation, Appropriate for age High Reach Operator are equal bilaterally Moves all extremities. Gait is steady, Speech is normal, Facial symmetry appears normal, Intact. Cardiovascular: No deficits noted. Denies chest pain, Heart tones S1 S2 present Patient's skin is warm and dry. Respiratory: Airway is patent Respiratory effort is even, unlabored, Respiratory pattern is regular, symmetrical, Breath sounds are clear bilaterally. GI: No deficits noted. No signs and/or symptoms were reported involving the gastrointestinal system. Abdomen is round non-distended, Bowel sounds present X 4 quads. : No deficits noted. No signs and/or symptoms were reported regarding the genitourinary system. EENT: No deficits noted. No signs and/or symptoms were reported regarding the EENT system. Derm: Skin is intact, is healthy with good turgor. 16:34 Cardiovascular: Rhythm is sinus rhythm. ab2 16:34 Reassessment: Patient appears in no apparent distress at this time. Awaiting result of ab2 swabs for disposition. Vital Signs: 13:48 BP 130 / 86; Pulse 92; Resp 18; Temp 97.4; Pulse Ox 99% on R/A; Weight 108.86 kg; iw Height 5 ft. 9 in. (175.26 cm); 14:05 BP 123 / 82; Pulse 87; Resp 16; Pulse Ox 99% on R/A; ab2 14:53 BP 108 / 88; Pulse 96; Resp 16; Pulse Ox 99% on R/A; ab2 15:41 BP 123 / 74; Pulse 94; Resp 17; Pulse Ox 98% on R/A; ab2 16:32 BP 111 / 73; Pulse 87; Resp 16; Pulse Ox 97% on R/A; ab2 13:48 Body Mass Index 35.44 (108.86 kg, 175.26 cm) iw ED Course: 13:43 Patient arrived in ED. rg4 13:46 Hudson Arredondo PA is PHCP. cp 13:46 Francis Richardson MD is Attending Physician. cp 13:50 Triage completed. iw 13:51 Arm band placed on. iw 13:58 Hong Singer is Primary Nurse. ab2 14:05 Patient has correct armband on for positive identification. Bed in low position. Side ab2 rails up X2. 14:05 No provider procedures requiring assistance completed. ab2 14:35 Basic Metabolic Panel Sent. ab2 14:35 CBC with Diff Sent. ab2 14:35 Troponin HS Sent. ab2 14:35 PT-INR Sent. ab2 14:35 NT PRO-BNP Sent. ab2 14:35 LFT's Sent. ab2 14:35 Magnesium Sent. ab2 14:53 XRAY Chest (1 view) In Process Unspecified. EDMS 15:36 Strep Sent. ab2 15:36 COVID-19/FLU A+B (Document "Date of Onset" if Symptomatic) Sent. ab2 17:22 IV discontinued, intact, bleeding controlled, No redness/swelling at site. Pressure ab2 dressing applied. Administered Medications: 14:35 Drug: SOLU-Medrol (methylPrednisoLONE) 125 mg Route: IVP; Site: right forearm; ab2 14:53 Follow up: Response: No adverse reaction ab2 14:35 Drug: Albuterol - atroVENT (ipratropium) (3:1) (2.5 mg - 0.5 mg) 3 ml Route: Nebulizer; ab2 14:53 Follow up: Response: No adverse reaction ab2 16:02 Drug: NS 0.9% 500 ml Route: IV; Rate: bolus; Site: right forearm; ab2 17:22 Follow up: Response: No adverse reaction; IV Status: Completed infusion ab2 16:02 Drug: Zofran (Ondansetron) 4 mg Route: IVP; Site: right forearm; ab2 17:22 Follow up: Response: No adverse reaction ab2 16:02 Drug: Pepcid (famotidine) 20 mg Route: IVP; Site: right forearm; ab2 17:22 Follow up: Response: No adverse reaction ab2 Outcome: 17:00 Discharge ordered by . cp 17:22 Discharged to home ambulatory, with family. ab2 17:22 Condition: good 17:22 Discharge instructions given to patient, family, Instructed on discharge instructions, follow up and referral plans. medication usage, Demonstrated understanding of instructions, follow-up care, medications, Prescriptions given X 4. 17:22 Patient left the ED. ab2 Signatures: Dispatcher [employer] Shonda Roche RN RN Hudson Fink PA PA cp Garcia, Rubi rg4 Hong Singer ab2
--- NOTE | 2021-10-23 17:01 | EDPHYS ---
Physician Documentation [facility] Name: Fito Christine Age: 51 yrs Sex: Male : 1970 Arrival Date: 10/23/2021 Time: 13:43 Bed 24 Private MD: ED Physician Francis Richardson HPI: 10/23 14:20 This 51 yrs old Male presents to ER via Ambulatory with complaints of cp Breathing Difficulty, Headache, Body Aches, Cough, Fever. 14:20 The patient has shortness of breath at rest. Onset: The symptoms/episode began/occurred cp 2 day(s) ago. Duration: The symptoms are continuous, and are steadily getting worse. 14:20 Associated signs and symptoms: Pertinent positives: non-productive cough, fever, chest cp heaviness, headache, body aches, Pertinent negatives: diaphoresis, dizziness. Severity of symptoms: in the emergency department the symptoms are unchanged despite home interventions. Historical: - Allergies: 13:50 PENICILLINS; iw - Home Meds: 13:50 Vascepa oral [Active]; Albuterol Inhl [Active]; atorvastatin Oral [Active]; Omeprazole iw Oral [Active]; - PMHx: 13:50 Asthma; GERD; High Cholesterol; iw - PSHx: 13:50 Appendectomy; iw - Immunization history:: Client reports receiving the 2nd dose of the Covid vaccine. - Social history:: Smoking status: Patient denies any tobacco usage or history of. ROS: 14:30 Constitutional: Positive for body aches, Negative for chills, fever, poor PO intake. cp 14:30 Eyes: Negative for injury, pain, redness, and discharge. cp 14:30 ENT: Positive for sore throat, Negative for drainage from ear(s), ear pain, difficulty swallowing, difficulty handling secretions. 14:30 Cardiovascular: Positive for chest tightness, Negative for palpitations. 14:30 Respiratory: Positive for cough, with no reported sputum, shortness of breath, at rest. 14:30 Abdomen/GI: Negative for abdominal pain, nausea, vomiting, and diarrhea. 14:30 Skin: Negative for cellulitis, rash. 14:30 Neuro: Positive for headache, Negative for altered mental status, weakness. 14:30 All other systems are negative. Exam: 14:35 Constitutional: The patient appears in no acute distress, alert, awake, cp non-diaphoretic, non-toxic, well developed, well nourished. 14:35 Head/Face: Normocephalic, atraumatic. cp 14:35 Eyes: Periorbital structures: appear normal, Conjunctiva: normal, no exudate, no injection, Sclera: no appreciated abnormality, Lids and lashes: appear normal, bilaterally. 14:35 ENT: External ear(s): are unremarkable, Ear canal(s): are normal, clear, TM's: dullness, bilaterally, Nose: is normal, Mouth: Lips: moist, Oral mucosa: moist, Posterior pharynx: Airway: no evidence of obstruction, patent, Tonsils: with erythema, no enlargement, no exudate, erythema, that is mild, exudate, is not appreciated. 14:35 Neck: ROM/movement: is normal, is supple, without pain, no range of motions limitations, no meningismus. 14:35 Chest/axilla: Inspection: normal, Palpation: is normal, no crepitus, no tenderness. 14:35 Cardiovascular: Rate: normal, Rhythm: regular, Edema: is not appreciated, JVD: is not appreciated. 14:35 Respiratory: the patient does not display signs of respiratory distress, Respirations: labored breathing, is not present, intercostal retractions, are absent, Breath sounds: decreased breath sounds, that are mild, diffuse, stridor, is not appreciated, + upper airway congestion. wheezing: that is mild, is heard diffusely. 14:35 Abdomen/GI: Inspection: abdomen appears normal, Palpation: abdomen is soft and non-tender, in all quadrants. 14:35 Back: pain, is absent, ROM is normal. 14:35 Neuro: Orientation: to person, place \\T\\ time. Mentation: is normal, Motor: is normal, Sensation: is normal. 14:50 ECG was reviewed by the Attending Physician. cp Vital Signs: 13:48 BP 130 / 86; Pulse 92; Resp 18; Temp 97.4; Pulse Ox 99% on R/A; Weight 108.86 kg; iw Height 5 ft. 9 in. (175.26 cm); 14:05 BP 123 / 82; Pulse 87; Resp 16; Pulse Ox 99% on R/A; ab2 14:53 BP 108 / 88; Pulse 96; Resp 16; Pulse Ox 99% on R/A; ab2 15:41 BP 123 / 74; Pulse 94; Resp 17; Pulse Ox 98% on R/A; ab2 16:32 BP 111 / 73; Pulse 87; Resp 16; Pulse Ox 97% on R/A; ab2 13:48 Body Mass Index 35.44 (108.86 kg, 175.26 cm) iw MDM: 13:59 Patient medically screened. cp 15:00 Differential diagnosis: asthma, Bronchitis CHF exacerbation, Chronic Obstructive cp Pulmonary Disease Myocardial Infarction pneumonia, pulmonary edema, Pulmonary Embolism Unstable Angina. 17:00 Data reviewed: vital signs, nurses notes, lab test result(s), EKG, radiologic studies, cp plain films. 17:00 Test interpretation: by ED physician or midlevel provider: ECG, plain radiologic cp studies. Counseling: I had a detailed discussion with the patient and/or guardian regarding: the historical points, exam findings, and any diagnostic results supporting the discharge/admit diagnosis, lab results, radiology results, the need for outpatient follow up, a family practitioner, to return to the emergency department if symptoms worsen or persist or if there are any questions or concerns that arise at home. Response to treatment: the patient's symptoms have markedly improved after treatment, and as a result, I will discharge patient. 10/23 14:18 Order name: Basic Metabolic Panel; Complete Time: 15:19 cp 10/23 15:19 Interpretation: Normal except: GFR 75. cp 10/23 14:18 Order name: CBC with Diff; Complete Time: 15:19 cp 10/23 15:58 Interpretation: Normal except: RBC 5.59; JAMI% 77.5; LYM% 11.4; NEUT A 8.4. cp 10/23 14:18 Order name: LFT's; Complete Time: 15:19 cp / 15:59 Interpretation: Normal except: GLOB 4.3; A/G 0.8. cp 10/23 14:18 Order name: Magnesium; Complete Time: 15:19 cp 10/23 14:18 Order name: NT PRO-BNP; Complete Time: 15:19 cp 10/23 14:18 Order name: PT-INR; Complete Time: 15:19 cp 10/23 14:18 Order name: Troponin HS; Complete Time: 15:19 cp 10/23 14:18 Order name: XRAY Chest (1 view); Complete Time: 15:58 cp 10/23 15:58 Interpretation: Report review. cp 10/23 15:20 Order name: COVID-19/FLU A+B (Document "Date of Onset" if Symptomatic); Complete Time: cp 16:56 10/23 15:20 Order name: Strep; Complete Time: 16:56 cp 10/23 16:14 Order name: Throat Culture EDMS 10/23 14:18 Order name: EKG; Complete Time: 14:19 cp 10/23 14:18 Order name: Cardiac monitoring; Complete Time: 14:35 cp 10/23 14:18 Order name: EKG - Nurse/Tech; Complete Time: 14:53 cp 10/23 14:18 Order name: IV Saline Lock; Complete Time: 14:35 cp 10/23 14:18 Order name: Labs collected and sent; Complete Time: 14:35 cp 10/23 14:18 Order name: O2 Per Protocol; Complete Time: 14:35 cp 10/23 14:18 Order name: O2 Sat Monitoring; Complete Time: 14:35 cp EC:50 Rate is 86 beats/min. Rhythm is regular. MD interval is normal. QRS interval is normal. cp QT interval is normal. T waves are Inverted in lead aVR. Interpreted by me. Reviewed by me. Administered Medications: 14:35 Drug: SOLU-Medrol (methylPrednisoLONE) 125 mg Route: IVP; Site: right forearm; ab2 14:53 Follow up: Response: No adverse reaction ab2 14:35 Drug: Albuterol - atroVENT (ipratropium) (3:1) (2.5 mg - 0.5 mg) 3 ml Route: Nebulizer; ab2 14:53 Follow up: Response: No adverse reaction ab2 16:02 Drug: NS 0.9% 500 ml Route: IV; Rate: bolus; Site: right forearm; ab2 17:22 Follow up: Response: No adverse reaction; IV Status: Completed infusion ab2 16:02 Drug: Zofran (Ondansetron) 4 mg Route: IVP; Site: right forearm; ab2 17:22 Follow up: Response: No adverse reaction ab2 16:02 Drug: Pepcid (famotidine) 20 mg Route: IVP; Site: right forearm; ab2 17:22 Follow up: Response: No adverse reaction ab2 Disposition Summary: 10/23/21 17:00 Discharge Ordered Location: Home cp Problem: new cp Symptoms: have improved cp Condition: Stable cp Diagnosis - Acute bronchitis, unspecified cp - Unspecified asthma with (acute) exacerbation cp Followup: cp - With: Private Physician - When: 2 - 3 days - Reason: Worsening of condition Discharge Instructions: - Discharge Summary Sheet cp - Acute Bronchitis, Adult cp - Asthma, Adult cp - Form - Excuse from Work, School, or Physical Activity cp Forms: - Medication Reconciliation Form cp - Thank You Letter cp - Antibiotic Education cp - Prescription Opioid Use cp - Family Work Release cp - Work release form [email or web address] Prescriptions: - Albuterol Sulfate 2.5 mg /3 mL (0.083 %) Inhalation Solution for Nebulization - inhale 1 unit by NEBULIZATION route every 8 hours As needed; 1 box; Refills: 0, cp Product Selection Permitted - Bromfed DM 2-30-10 mg/5 mL Oral syrup - take 10 milliliter by ORAL route every 4-6 hours; 200 milliliter; Refills: 0, cp Product Selection Permitted - Zithromax Z-Braulio 250 mg Oral Tablet - take 1 tablet by ORAL route as directed for 5 days Day 1 - take two (2) tablets cp one time. Day 2, 3, 4 , 5 take one (1) tablet once daily.; 6 tablet; Refills: 0, Product Selection Permitted - Prednisone 20 mg Oral Tablet - take 2 tablets by ORAL route once daily for 5 days; 10 tablet; Refills: 0, cp Product Selection Permitted Signatures: Dispatcher [employer] Shonda Roche RN RN Hudson Fink PA PA cp Bleininger, Alexis ab2
[2021-10-23 18:13] VITALS: TEMP 97.4
[2021-10-23 18:19] VITALS: BP 111/73; O2SAT 97
--- NOTE | 2021-10-24 09:24 | EKG ---
Test Date: 2021-10-23 Test Time: 14:44:15 Laboratory Administrative Director: MARIANELA MEASUREMENT RESULTS: Intervals: Rate: 86 MI: 130 QRSD: 74 QT: 382 QTc: 457 [place]: P: 39 MI: 130 QRS: 59 T: 58 INTERPRETIVE STATEMENTS: Normal sinus rhythm Normal ECG No previous ECG available for comparison Electronically Signed On 10-24-21 09:22:31 CDT by Saw Costello
== END 2021-10-23 17:22 | disposition home or self-care (01) ==
LOC: ER 13:40
DX: J20.9 Acute bronchitis, unspecified (principal); J45.901 Unspecified asthma with (acute) exacerbation; E78.00 Pure hypercholesterolemia, unspecified; Z20.822 Contact with and (suspected) exposure to COVID-19
CPT/HCPCS: 96361; 93005; 87070; 85025; 80048; 36415; 83735; 85610; 80076; 87081; 84484; 83880; 0240U; 71045; 94640; 96375; 96374; 99285; J7040; J2930; J2405; J3490